=== PATIENT | female | born 1955 | race Caucasian/White ===

== ENCOUNTER 2020-12-14 13:07 | Emergency (ER) | payer MEDICARE, OTHER, SELFPAY ==
--- NOTE | ~2020-12-14 | CT_ITS ---
EXAMINATION: CT abdomen pelvis w con DATE: 12/14/2020 14:24 INDICATION: Left-sided abdominal pain TECHNIQUE: Computed tomography (CT) of the abdomen and pelvis was performed without intravenous contr ast. The dose-length product was 1342.38 mGy-cm. Automated exposure control and iterative reconstruct ion technique were employed. COMPARISON: None. FINDINGS: Lung bases are unremarkable. Heart size normal. No significant pleural or pericardial effus ion. No significant vascular abnormality. No lymphadenopathy. Fatty infiltration of the liver. There are gallstones. The spleen, pancreas, adrenal glands and kidne ys are unremarkable. Nonobstructive bowel gas pattern. There is acute diverticulitis of the distal de scending colon without evidence for perforation or abscess. No abnormal pelvic fluid collections. The re is a 3.8 cm left ovarian cyst. Mild lumbar spondylosis. IMPRESSION: 1. Acute uncomplicated diverticulitis distal descending colon. 2: Left ovarian cyst measuring 3.8 cm. 3: Cholelithiasis. Reviewed, dictated and finalized at location A. AIN FITTER
[2020-12-14 13:12] VITALS: BP 168/68; PULSE 82; RESP 18; TEMP 36.8; O2SAT 100
--- NOTE | 2020-12-14 13:19 | PC.NURSE ---
Patient up to bathroom at this time.
--- NOTE | 2020-12-14 13:23 | ED.ABDPAIN ---
HPI - Abdominal Pain General Chief Complaint: Abdominal Pain Stated Complaint: abdominal pain Time Seen by Provider: 12/14/20 13:15 Source: patient Mode of arrival: ambulatory Limitations: no limitations History of Present Illness HPI narrative: Patient is a 65-year-old female complaining of left-sided abdominal pain, 6 out of 10, sharp, nonradiating worse after eating and drinking, started approximately 4 days ago. Patient denies any chest pain, shortness of breath, nausea, vomiting, diarrhea, fever or chills. Related Data Home Medications Medication Instructions Recorded Confirmed B-complex with vitamin C 1 tablet PO DAILY 07/30/20 calcium carbonate 500 mg calcium 500 mg PO DAILY 07/30/20 (1,250 mg) tablet cholecalciferol (vitamin D3) 125 125 mcg PO DAILY 07/30/20 mcg (5,000 unit) capsule coenzyme P88-[id number] E 100 mg-100 cap PO 07/30/20 unit capsule diphenhydramine HCl 25 mg capsule 25 mg PO ONCE PRN cap 07/30/20 pediatric multivitamin 1 tablet PO DAILY 07/30/20 Allergies Allergy/AdvReac Type Severity Reaction Status Date / Time aspirin Allergy Unknown Unknown Verified 11/21/20 15:28 benazepril Allergy Unknown Unknown Verified 11/21/20 15:28 caffeine Allergy Unknown Unknown Verified 11/21/20 15:28 hydrocodone Allergy Unknown Itching Verified 11/21/20 15:28 metformin Allergy Unknown Unknown Verified 11/21/20 15:28 morphine Allergy Unknown Unknown Verified 11/21/20 15:28 Sulfa (Sulfonamide Allergy Unknown Unknown Verified 11/21/20 15:28 Antibiotics) sulfanilamide Allergy Unknown Unknown Verified 11/21/20 15:28 tramadol Allergy Unknown Unknown Verified 11/21/20 15:28 Review of Systems Review of Systems: All systems reviewed & are unremarkable except as noted in HPI and below Constitutional: Constitutional: Denies body ache(s), Denies chills, Denies excessive sweating, Denies fatigue, Denies fever(s), Denies headache(s), Denies lethargy, Denies malaise, Denies weakness and Denies weight loss Eyes: Eyes: Denies blurry vision, Denies change in vision and Denies loss of vision ENT: Denies dizziness, Denies ear discharge, Denies headache(s), Denies lip swelling, Denies epistaxis, Denies nasal congestion, Denies neck pain, Denies throat swelling and Denies tongue swelling Cardiovascular: Cardiovascular: Denies chest pain, Denies chest pain at rest, Denies chest pain with activity, Denies diaphoresis, Denies rapid heart rate, Denies edema, Denies irregular heart rhythm, Denies lightheadedness, Denies palpitations, Denies dyspnea and Denies dyspnea on exertion Respiratory: Respiratory: Denies chest congestion, Denies cough, Denies hemoptysis, Denies dyspnea and Denies dyspnea on exertion Gastrointestinal: Gastrointestinal: Denies melena, Denies hematochezia, Denies diarrhea, Denies nausea, Denies vomiting and Denies hematemesis Musculoskeletal: Musculoskeletal: Denies abnormal gait, Denies deformity, Denies joint swelling, Denies limited range of motion, Denies neck pain and Denies numbness Neurologic: Denies Abnormal speech present, Denies abnormal gait, Denies confusion, Denies dizziness, Denies headache(s), Denies focal weakness, Denies loss of vision, Denies numbness, Denies Other visual disturbances, Denies Sensory deficit (Neuro) and Denies weakness Psychiatric: Psychiatric: Denies confusion, Denies depression, Denies auditory hallucinations, Denies homicidal ideation and Denies suicidal ideation Endocrine: Endocrine: Denies cold intolerance, Denies excessive sweating, Denies fatigue, Denies heat intolerance and Denies palpitations Hematologic/Lymphatic: Hematologic/Lymphatic: Denies easy bleeding and Denies easy bruising Allergic/Immunologic: Allergic/Immunologic: Denies lip swelling, Denies throat swelling and Denies tongue swelling [facility] Past Medical History Medical History BMI 37.0-37.9, adult Breast cancer Carpal tunnel syndrome Depression El
[2020-12-14] MEDS: SODIUM CHLORIDE 0.9% IV 1,000 ML 999 ML IV CONT (13:34)
[2020-12-14 13:48] LABS: Basophils Absolute Auto 0.1 K/mm3 (0.0-0.1); Basophils Percent Auto 0.6 % (0.2-1.2); Eosinophils Absolute Auto 0.3 K/mm3 (0-0.3); Eosinophils Percent Auto 2.7 % (0-4.4); Hematocrit 37.9 % (37.0-47.0); Hemoglobin 12.7 g/dL (12.0-15.0); Immature Granulocyte Absolute 0.04 K/mm3 (0.00-0.031); Immature Granulocyte Percent A 0.3 % (0-0.5); Lymphocytes Percent Auto 21.8 % (18.3-44.2); Mean Corpuscular HGB Conc 33.5 g/dl (32-36); Mean Corpuscular Hemoglobin 32.7 pg (26-34); Mean Corpuscular Volume 97.7 fl (80-100); Mean Platelet Volume 9.7 fl (7.4-10.4); Monocytes Absolute Auto 0.9 K/mm3 (0.1-0.6); Monocytes Percent Auto 7.8 % (2.6-8.5); Neutrophils Percent Auto 66.8 % (45.5-73.1); Platelet Count Result 310 k/mm3 (150-375); Red Blood Count 3.88 M/mm3 (4.2-5.4); White Blood Count 11.9 K/mm3 (4.5-10.0)
[2020-12-14 13:53] LABS: Add Urine Microscopic? YES; Appearance Urine Cloudy (Clear); Bilirubin Urine Negative (Negative); Blood Urine Negative (Negative); Color Urine Yellow (Yellow); Glucose Urine UA Negative (Negative); Ketones Urine Negative (Negative); Leukocyte Esterase Ur Negative LEU/UL (Negative); Nitrate Urine Negative (Negative); Protein Urine Negative (Negative); RBC Urine 0-2 /hpf (0-2); Specific Grav Ur 1.009 (1.001-1.035); Squamous Epithelial Cell Urine Few /hpf (Few); Urobilinogen Urine Negative mg/dL (<2.0); WBC Urine 0-3 /hpf
[2020-12-14 14:08] LABS: Alanine Aminotransferase 9 U/L (4-35); Alkaline Phosphatase 64 U/L (38-126); Anion Gap 4 mmol/L (8-16); Aspartate Amino Transferase 26 U/L (14-36); Bilirubin,Total 0.5 mg/dL (0.2-1.3); Blood Urea Nitrogen 13 mg/dL (7-17); Calcium 8.7 mg/dL (8.4-10.2); Carbon Dioxide 30 mmol/L (22-30); Chloride 104 mmol/L (98-107); Estimated CRCL calculation 90 ml/min; Estimated Glomerular Filt Rate > 60; Glucose 172 mg/dL (65-105); Lipase 37 U/L (23-300); Potassium 4.6 mmol/L (3.4-5.0); Sodium 138 mmol/L (137-145)
[2020-12-14 14:09] LABS: Lactic Acid Reflex 1.1 mmol/L (0.7-2.1)
[2020-12-14 14:20] VITALS: BP 159/65; PULSE 72; RESP 19; TEMP 36.6; O2SAT 99
[2020-12-14 15:37] VITALS: BP 151/76; PULSE 74; RESP 19; O2SAT 98
[2020-12-14] MEDS: KETOROLAC 30 MG/ML VIAL (*BKC) IV PUSH (16:19)
[2020-12-14] MEDS: metroNIDAZOLE 500 MG/ISO 100ML 500 MG/100 ML BAG 100 MG IVPB (16:20)
[2020-12-14 16:41] VITALS: BP 149/92; PULSE 72; RESP 20; TEMP 36.4; O2SAT 97
[2020-12-14 17:26] VITALS: BP 141/79; PULSE 74; RESP 18; TEMP 36.6; O2SAT 99
== END 2020-12-14 17:29 | disposition home or self-care (01) ==
PROVIDERS: Emergency Medicine; Emergency Provider Emergency Medicine; PCP Family Medicine
DX: K57.32 Diverticulitis of large intestine without perforation or abscess without bleeding (principal); I10 Essential (primary) hypertension; M81.0 Age-related osteoporosis without current pathological fracture; Z85.3 Personal history of malignant neoplasm of breast; Z87.891 Personal history of nicotine dependence; K80.20 Calculus of gallbladder without cholecystitis without obstruction; N83.202 Unspecified ovarian cyst, left side
CPT/HCPCS: 36415; 74177; 80053; 81001; 83605; 83690; 85025; 96361; 96365; 96368; 96375; 99284; 99285; J0696; J1885; J7030; Q9967

== ENCOUNTER 2021-06-19 14:39 | Outpatient (CLI) | payer MEDICARE, OTHER, SELFPAY ==
--- NOTE | 2021-06-19 | ECG_ITS ---
Measurements Intervals [place] Rate: 68 P: 60 RI: 157 QRS: -27 QRSD: 85 T: 30 QT: 391 QTc: 417 Interpretive Statements SINUS RHYTHM NORMAL ECG Electronically Signed On 06-19-2021 15:51:20 CDT by Ilya Roman D.O.
== END 2021-06-19 14:40 | disposition home or self-care (01) ==
PROVIDERS: PCP Family Medicine
DX: C50.912 Malignant neoplasm of unspecified site of left female breast (principal)
CPT/HCPCS: 93005

== ENCOUNTER → 2021-07-10 02:54 | Outpatient (CLI) | payer MEDICARE, OTHER, SELFPAY ==
[2021-07-10 19:19] LABS: SARS-CoV-2 RNA PCR Negative
== END ==
PROVIDERS: PCP Family Medicine
DX: Z01.812 Encounter for preprocedural laboratory examination (principal); Z85.3 Personal history of malignant neoplasm of breast; Z20.822 Contact with and (suspected) exposure to COVID-19
CPT/HCPCS: C9803; U0003; U0005

== ENCOUNTER → 2021-07-31 01:45 | Outpatient (CLI) | payer MEDICARE, OTHER, SELFPAY ==
[2021-07-31 17:06] LABS: SARS-CoV-2 RNA PCR Negative
== END ==
PROVIDERS: PCP Family Medicine
DX: Z01.812 Encounter for preprocedural laboratory examination (principal); Z20.822 Contact with and (suspected) exposure to COVID-19
CPT/HCPCS: C9803; U0003; U0005

== ENCOUNTER 2022-06-02 12:17 | Emergency (ER) | payer MEDICARE, OTHER, SELFPAY ==
--- NOTE | ~2022-06-02 | XR_ITS ---
EXAMINATION: XR chest 2V DATE: 06/02/2022 12:43 INDICATION: Cough with shortness of breath. Tingling radiation treatment. TECHNIQUE: PA and lateral views of the chest were obtained. COMPARISON: Chest radiograph dated 08/30/2018 FINDINGS: New approximately 3-4 cm focal airspace opacity at the lateral left midlung zone. Smaller more subtle airspace opacities in the more caudal left mid to lower lung zones. No pleural effusion or pneumotho rax. Calcified right apical nodule consistent with old granulomatous disease. The cardiomediastinal s ilhouette is normal. Moderate thoracic spondylosis. Postoperative changes at the left breast. IMPRESSION: 1. New airspace opacities in the left mid and lower lung zones in the acute setting concerning for pn eumonia. Given the provided history differential would also include radiation pneumonitis/fibrosis or malignancy. Recommend either radiographic follow-up to resolution or chest CT for further evaluation . Reviewed, dictated and finalized at location A. IMPRESSION: 1. New airspace opacities in the left mid and lower lung zones in the acute set ting concerning for pneumonia. Given the provided history differential would al so include radiation pneumonitis/fibrosis or malignancy. Recommend either radio graphic follow-up to resolution or chest CT for further evaluation.
[2022-06-02 12:24] VITALS: BP 148/67; PULSE 83; RESP 19; TEMP 36.9; O2SAT 97
--- NOTE | 2022-06-02 12:57 | ED.URI ---
HPI - URI/Sore Throat General Chief Complaint: Upper Respiratory Infection Stated Complaint: Cough,Shortness of Breath Time Seen by Provider: 06/02/22 12:45 Source: patient, RN notes reviewed and old records reviewed Mode of arrival: ambulatory Limitations: no limitations History of Present Illness HPI Narrative: 66 year old female who presents to express care with complaints of cough, intermittent shortness of breath and some left lateral chest discomfort with cough and some movement. Patient states that cough has become worse since yesterday and she states was increasingly bad last night that she couldn't hardly sleep. Patient reports that she has taken some NyQuil cough medication but states that it didn't provide her much relief. Patient is afebrile no tachypnea noted but shortness of breath stated with exertion. MD elicited complaint: cough and other (Shortness of breath,) Pertinent past history: other (breast cancer and radiation therapy left breast) Onset (ago): week(s) (1) Related Data Home Medications Medication Instructions Recorded Confirmed B-complex with vitamin C (Super B 1 tablet PO DAILY 07/30/20 03/18/22 Complex-Vitamin C tablet) calcium carbonate 500 mg calcium 500 mg PO DAILY 07/30/20 03/18/22 (1,250 mg) tablet (Calcium 500) cholecalciferol (vitamin D3) 125 125 mcg PO DAILY 07/30/20 06/02/22 mcg (5,000 unit) capsule coenzyme [id number] E 100 mg-100 100 cap PO DAILY 07/30/20 06/02/22 unit capsule pediatric multivitamin 1 tablet PO DAILY 07/30/20 06/02/22 ([facility] chew[facility] tablet) amlodipine 5 mg tablet 5 mg PO DAILY 09/09/21 06/02/22 exemestane 25 mg tablet 25 mg PO DAILY 12/03/21 06/02/22 Allergies Allergy/AdvReac Type Severity Reaction Status Date / Time aspirin Allergy Unknown Unknown Verified 06/02/22 12:37 benazepril Allergy Unknown Unknown Verified 06/02/22 12:37 caffeine Allergy Unknown Unknown Verified 06/02/22 12:37 hydrocodone Allergy Unknown Itching Verified 06/02/22 12:37 metformin Allergy Unknown Unknown Verified 06/02/22 12:37 morphine Allergy Unknown Unknown Verified 06/02/22 12:37 Sulfa (Sulfonamide Allergy Unknown Unknown Verified 06/02/22 12:37 Antibiotics) sulfanilamide Allergy Unknown Unknown Verified 06/02/22 12:37 tramadol Allergy Unknown Unknown Verified 06/02/22 12:37 Review of Systems Review of Systems: CONSTITUTIONAL: Denies fever, chills, or sweats. EYES: Denies visual changes, redness, or discharge. ENT: Denies rhinorrhea, congestion, sore throat, or otalgia. CARDIOVASCULAR: left lateral chest discomfort with cough, movement and deep breathing, denies palpitations, or edema. RESPIRATORY: Positive non productive cough intermittent dyspnea. GASTROINTESTINAL: Denies abdominal pain, nausea, vomiting, or diarrhea. GENITOURINARY: Denies dysuria or hematuria. SKIN: Denies rash or itching. MUSCULOSKELETAL: Denies back pain, joint pain, or myalgia. NEUROLOGIC: Denies headache, numbness, or weakness. PSYCHIATRIC: Positive for anxiety or depression. All systems reviewed & are unremarkable except as noted in HPI and below PMFSH Past Medical History Medical History Adult BMI 36.0-36.9 kg/sq m BMI 37.0-37.9, adult Breast cancer Carpal tunnel syndrome Depression Elevated lipids History of vaginal delivery x 3 Hypertension Osteoporosis Trigger finger Surgical History Surgical History History of bilateral tubal ligation History of dilation and curettage History of mastectomy History of shoulder surgery Hx of bilateral breast reduction surgery Family History Family History Sibling Family history of premature coronary heart disease Hypertension COPD (chronic obstructive pulmonary disease) Mother Hypertension Family history of malignant neoplasm of cervix Family history of
== END 2022-06-02 13:36 | disposition home or self-care (01) ==
PROVIDERS: Emergency Provider Registered Nurse; PCP Family Medicine
DX: J18.9 Pneumonia, unspecified organism (principal); Z87.891 Personal history of nicotine dependence; I10 Essential (primary) hypertension; M81.0 Age-related osteoporosis without current pathological fracture; Z85.3 Personal history of malignant neoplasm of breast; F32.A Depression, unspecified
CPT/HCPCS: 71046; 99213; G0463

== ENCOUNTER → 2022-06-22 13:15 | Outpatient (CLI) | payer MEDICARE, OTHER, SELFPAY ==
--- NOTE | ~2022-06-22 | XR_ITS ---
XR chest 2V 06/22/2022 13:48 Indication: Pneumonia. Procedure: 2 view chest Comparison: Comparison to multiple prior studies sequentially, with oldest reviewed study dated 03/21. Findings: There is patchy left-sided airspace disease, compatible with pneumonia. Heart size normal. No pleural effusion or pneumothorax. Impression: 1: Patchy left-sided airspace disease, compatible with pneumonia. Reviewed, dictated and finalized at location B. Impression: 1: Patchy left-sided airspace disease, compatible with pneumonia.
== END ==
PROVIDERS: PCP Family Medicine; Visit Provider Physician Assistant Medical
DX: J18.9 Pneumonia, unspecified organism (principal); R91.8 Other nonspecific abnormal finding of lung field
CPT/HCPCS: 71046

== ENCOUNTER 2022-06-29 14:27 | Outpatient (CLI) | payer MEDICARE, OTHER, SELFPAY ==
--- NOTE | ~2022-06-29 | CT_ITS ---
EXAMINATION:CT diagnostic chest w con DATE: 06/29/2022 15:11 INDICATION: Left chest pain. Cough. TECHNIQUE: Computed tomography (CT) of the chest was performed with 75 mL Omnipaque 350 intravenous c ontrast. Automated exposure control and iterative reconstruction technique were employed. The dose-le ngth product (DLP) was 302.56 mGy-cm. COMPARISON: Chest 2 views 06/22/2022, 06/02/2022, chest single view 08/30/18 FINDINGS: There is mild scarring at right lung apex. There is mild atelectasis in the lungs. In the l eft upper lobe, there are patchy groundglass and airspace opacities with air bronchograms, consistent with pneumonia. No pleural effusion. There are surgical changes in left breast. The heart size is no rmal. No pericardial effusion. In the left thyroid lobe, there is a 5 mm nodule, likely not clinicall y significant. There are no pathologically enlarged lymph nodes. There is moderate thoracic spondylo sis. There is a chronic compression fracture of T3. IMPRESSION: 1. Left upper lobe pneumonia. Reviewed, dictated and finalized at location A.
[2022-06-29 15:03] LABS: Estimated Glomerular Filt Rate > 60
== END 2022-06-29 14:28 | disposition home or self-care (01) ==
PROVIDERS: PCP Family Medicine; Visit Provider Physician Assistant Medical
DX: J18.9 Pneumonia, unspecified organism (principal); C50.112 Malignant neoplasm of central portion of left female breast; R91.8 Other nonspecific abnormal finding of lung field
CPT/HCPCS: 71260; Q9967

== ENCOUNTER 2022-08-21 13:31 | Outpatient (CLI) | payer MEDICARE, OTHER, SELFPAY ==
--- NOTE | ~2022-08-21 | US_ITS ---
EXAMINATION: US pelvic complete w TV DATE: 08/21/2022 15:34 INDICATION: Left ovarian cyst follow-up. TECHNIQUE: Multiple transabdominal and endovaginal sonographic images of the pelvis were obtained. COMPARISON: CT abdomen and pelvis 12/14/2020. FINDINGS: Uterus: 8.4 x 4.3 x 3.0 cm. Endometrial complex measures 2.7 mm. Right Ovary: Not visualized. Left Ovary: 5.6 x 3.8 x 4.2 cm. Vascular flow is present. 5.1 x 3.2 x 3.8 cm circumscribed anechoic a nd avascular ovarian cyst (previously measured 5.1 cm by my measurements). There is no free fluid in the pelvis. IMPRESSION: Stable 5.1 cm left ovarian cyst, likely a benign simple cyst. Recommend follow-up pelvic ultrasound i n 2 years to document stability. Right ovary not visualized. Reviewed, dictated and finalized at location K. IMPRESSION: Stable 5.1 cm left ovarian cyst, likely a benign simple cyst. Recommend follow- up pelvic ultrasound in 2 years to document stability. Right ovary not visualiz ed.
== END 2022-08-21 13:32 | disposition home or self-care (01) ==
PROVIDERS: PCP Family Medicine; Visit Provider Student in an Organized Health Care Education/Training Program
DX: N83.202 Unspecified ovarian cyst, left side (principal)
CPT/HCPCS: 76830; 76856

== ENCOUNTER 2022-12-07 12:01 | Emergency (ER) | payer MEDICARE, OTHER, SELFPAY ==
--- NOTE | ~2022-12-07 | XR_ITS ---
EXAMINATION: XR wrist RT min 3V DATE: 12/07/2022 12:50 INDICATION: Distal right radius pain. Fall. TECHNIQUE: 4 views of right wrist were obtained. COMPARISON: None. FINDINGS: Bone alignment is normal. No fracture. There is mild osteoarthritis of triscaphe joint and first carpometacarpal joint. IMPRESSION: 1. Mild polyarticular osteoarthritis. Reviewed, dictated and finalized at location A. ENE WASHER
--- NOTE | ~2022-12-07 | XR_ITS ---
EXAMINATION: XR shoulder RT min 2V INDICATION: Right shoulder pain TECHNIQUE: Four views of the right shoulder are submitted. COMPARISON: None FINDINGS: Normal alignment. No fracture. There is mild osteoarthritis of the acromioclavicular and gl enohumeral joints. Soft tissues are unremarkable. IMPRESSION: 1. Mild osteoarthritis without acute osseous abnormality. Reviewed, dictated and finalized at location B. [employer]
[2022-12-07 12:23] VITALS: BP 135/56; PULSE 81; RESP 18; TEMP 36.6; O2SAT 98
--- NOTE | 2022-12-07 12:28 | ED.SKABFB ---
HPI - Skin/Abscess/Foreign Bdy General Chief complaint: Skin/Abscess/Foreign Body Stated complaint: rash Time Seen by Provider: 12/07/22 12:03 Source: patient Mode of arrival: ambulatory Limitations: no limitations History of Present Illness HPI narrative: 67-year-old female presents to [facility] with multiple complaints. Patient reports that she tripped over her suitcase in her home yesterday and fell landing on her right side. Patient reports that she has had pain to her right shoulder and right wrist since following the fall. Patient denies hitting her head or loss of consciousness. Patient also reports erythematous itchy rash to her midsternal region. Patient reports that the rash 1st started 3 weeks ago. Patient reports that she has a history of breast cancer, followed up with her surgeon who completed a biopsy of the area on November 10 2022 which was negative. Patient reports that she has been applying oraz-aiq-[id number] Neosporin and Aquaphor with little relief. Patient reports that she also has been cleaning the area with peroxide. Patient reports that she started taking leftover antibiotics that she had at home from prior diagnosis of pneumonia with no improvement of rash. Patient denies fever, body aches, chills, nausea, vomiting or diarrhea. Onset (ago): week(s) (3) Quality: pruritic Pain Consistency: constant Associated symptoms: denies other symptoms Related Data Home Medications Medication Instructions Recorded Confirmed B-complex with vitamin C (Super B 1 tablet PO DAILY 07/30/20 12/07/22 Complex-Vitamin C tablet) calcium carbonate 500 mg calcium 500 mg PO DAILY 07/30/20 12/07/22 (1,250 mg) tablet (Calcium 500) cholecalciferol (vitamin D3) 125 125 mcg PO DAILY 07/30/20 12/07/22 mcg (5,000 unit) capsule coenzyme R24-[id number] E 100 mg-100 100 cap PO DAILY 07/30/20 12/07/22 unit capsule pediatric multivitamin 1 tablet PO DAILY 07/30/20 12/07/22 ([facility] Multivitamin chewable tablet) Allergies Allergy/AdvReac Type Severity Reaction Status Date / Time aspirin Allergy Unknown Unknown Verified 09/28/22 12:43 benazepril Allergy Unknown Unknown Verified 09/28/22 12:43 caffeine Allergy Unknown Unknown Verified 09/28/22 12:43 hydrocodone Allergy Unknown Itching Verified 09/28/22 12:43 morphine Allergy Unknown Unknown Verified 09/28/22 12:43 Sulfa (Sulfonamide Allergy Unknown Unknown Verified 09/28/22 12:43 Antibiotics) sulfanilamide Allergy Unknown Unknown Verified 09/28/22 12:43 tramadol Allergy Unknown Unknown Verified 09/28/22 12:43 jardiance AdvReac Intermediate weakness Uncoded 09/28/22 12:43 Review of Systems Constitutional: Constitutional: Denies chills, Denies fatigue, Denies fever(s) and Denies weakness ENT: Denies dizziness Respiratory: Respiratory: Denies cough, Denies dyspnea and Denies wheezing Gastrointestinal: Gastrointestinal: Denies diarrhea, Denies nausea and Denies vomiting Musculoskeletal: Musculoskeletal: Reports arthralgias Comments: Pain to right shoulder and right wrist, pain is worse with range of motion Integumentary/Breasts: Skin/Breast: Reports pruritus and Reports rash PMFSH Past Medical History Medical History Adult BMI 36.0-36.9 kg/sq m BMI 37.0-37.9, adult BMI over 35 Breast cancer Carpal tunnel syndrome Depression Elevated lipids History of radiation therapy History of vaginal delivery x 3 Hypertension Osteoporosis Trigger finger Surgical History Surgical History History of bilateral tubal ligation History of dilation and curettage History of mastectomy History of shoulder surgery Hx of bilateral breast reduction surgery Family History Family History Sibling Family history of premature coronary heart disease Hypertension COPD (chronic obstructive pulmonary disease)
== END 2022-12-07 13:16 | disposition home or self-care (01) ==
PROVIDERS: Emergency Provider Nurse Practitioner Family; PCP Family Medicine
DX: R21 Rash and other nonspecific skin eruption (principal); M25.511 Pain in right shoulder; M25.531 Pain in right wrist; W18.09XA Striking against other object with subsequent fall, initial encounter; Z87.891 Personal history of nicotine dependence; I10 Essential (primary) hypertension; M81.0 Age-related osteoporosis without current pathological fracture; Z85.3 Personal history of malignant neoplasm of breast; F32.A Depression, unspecified
CPT/HCPCS: 73030; 73110; 99214; G0463

== ENCOUNTER 2023-08-19 11:18 | Outpatient (CLI) | payer MEDICARE, OTHER, SELFPAY ==
--- NOTE | ~2023-08-19 | XR_ITS ---
Left wrist Technique: PA, oblique, lateral, and ulnar deviation views were obtained. Clinical History: Pain Findings: No acute fracture or dislocation is seen. Osseous alignment is anatomic. There is mild dege nerative change of the STT articulations and first CMC joint. Soft tissues are unremarkable. Impression: Mild degenerative change of the STT articulations and first CMC joint. Reviewed, dictated and finalized at location M. Impression: Mild degenerative change of the STT articulations and first CMC joint.
== END 2023-08-19 11:19 | disposition home or self-care (01) ==
PROVIDERS: PCP Family Medicine; Visit Provider Physician Assistant Medical
DX: M25.532 Pain in left wrist (principal)
CPT/HCPCS: 73110

== ENCOUNTER 2023-12-24 06:40 | Day surgery (SDC) | payer MEDICARE, OTHER, SELFPAY ==
[2023-11-26 14:57] VITALS: BMI 34.0
--- NOTE | 2023-12-22 14:45 | SUR.PREOP ---
Patient called regarding upcoming procedure. Reviewed preop instructions, appointment times, and procedure prep.
--- NOTE | 2023-12-23 13:11 | PM.HPGS ---
History of Present Illness History of Present Illness Consent: Risks, benefits, and alternatives have been discussed and questions answered. Patient agrees to proceed with procedure. Chief complaint: neoplasm screening Narrative: Joseline Sullivan is a 68 year old female referred for colon cancer screening. It has been 10 years since her last colonoscopy. Review of Systems Review of Systems: All systems reviewed & are unremarkable except as noted in HPI and below PMFSH Past Medical History Medical History BMI 33.0-33.9,adult BMI 34.0-34.9,adult Breast cancer Carpal tunnel syndrome Depression Elevated lipids History of radiation therapy History of vaginal delivery x 3 Hypertension Osteoporosis Trigger finger Surgical History Surgical History History of bilateral tubal ligation History of dilation and curettage History of mastectomy History of shoulder surgery Hx of bilateral breast reduction surgery Family History Family History Sibling Family history of premature coronary heart disease Hypertension COPD (chronic obstructive pulmonary disease) Mother Hypertension Family history of malignant neoplasm of cervix Family history of malignant neoplasm of urinary bladder, Onset Age: 76 Patient's mother is Family history of hypercholesterolemia Grandparent Family history of malignant neoplasm of cervix Cerebrovascular accident Father Heart disease Other Asthma Carcinoma of colon Family history of heart disease in male family member before age 55 Family history of malignant neoplasm of uterus Social History Social History Smoking packs per day: 1 Smoking cigarettes per day: 20.0 Years smoked: 30 Smoking pack-years: 30.00 Smoking status: Former smoker Tobacco type: cigarettes Second hand tobacco smoke exposure: Yes Smoking end date: 11/08/98 Alcohol intake: never Substance use: never Substance use type: does not use Do You Feel Safe in your Home?: No Lack of Transportation: No Lack of Food: Never True Current Housing: I Have Housing Concerned About Future Housing: No Difficulty Paying Gas/Electric Bills: No Difficulty Paying for Meds: No Currently Unemployed: No Education: Bachelor's Degree Difficulty w/ Childcare or Family Care: No Living arrangements: other Additional living arrangements comments: with sp Occupation/Education: 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 Gender identity (if verbalized by the patient): Female Spiritual care concerns: No Meds Home Medications and Allergies Home Medications Medication Instructions Recorded Confirmed Type B-complex with vitamin C (Super B 1 tablet PO DAILY 07/30/20 11/26/23 History Complex-Vitamin C tablet) calcium carbonate 500 mg calcium 500 mg PO DAILY 07/30/20 11/26/23 History (1,250 mg) tablet (Calcium 500) cholecalciferol (vitamin D3) 125 125 mcg PO DAILY 07/30/20 11/26/23 History mcg (5,000 unit) capsule coenzyme [id number]-[id number] E 100 mg-100 100 cap PO DAILY 07/30/20 11/26/23 History unit capsule anastrozole 1 mg tablet 1 mg PO DAILY 01/12/23 11/26/23 History biotin 10,000 mcg capsule 10,000 mcg PO DAILY 04/12/23 11/26/23 History amlodipine 5 mg tablet 5 mg PO DAILY #90 tabs 11/09/23 11/26/23 Rx carbidopa 25 mg-levodopa 100 mg See Rx Instructions .Route 11/09/23 11/26/23 Rx tablet .COMPLEX #360 tabs carvedilol 12.5 mg tablet See Rx Instructions .Route 11/09/23 11/26/23 Rx .COMPLEX #180 tabs meloxicam 7.5 mg tablet 7.5 mg PO DAILY inflammation #90 11/09/23 11/26/23 Rx tabs metformin 500 mg tablet 1,000 mg PO BID #360 tabs 11/09/23 11/26/23 Rx rosuvastatin 40 mg tablet (Crestor) 40 mg PO DAILY #90 tabs
[2023-12-24] MEDS: LACTATED RINGERS 1,000 ML 150 ML IV CONT (06:39)
[2023-12-24 06:40] LABS: Glucose Point of Care 119 mg/dl (65-105)
--- NOTE | 2023-12-24 07:25 | WPDANESEPPF ---
Anes - Initial Pre Proc Eval Procedure: Operation Date: 12/24/23 07:30 Proposed Procedures p Screening Colonoscopy - Guru Ramos MD Date/Time: 12/24/23 07:25 Surgeon: Guru Ramos MD Pre Op Diagnosis: neoplasm screening Patient Data Age: 68 Gender: F Height: 1.75 m Weight: 104.5 kg Last Vital Signs O2 Del Method Room Air 12/24/23 06:19 Allergies Allergy/AdvReac Type Severity Reaction Status Date / Time aspirin Allergy Unknown Unknown Verified 12/24/23 06:18 Sulfa (Sulfonamide Allergy Unknown Unknown Verified 12/24/23 06:18 Antibiotics) sulfanilamide Allergy Unknown Unknown Verified 12/24/23 06:18 tramadol Allergy Unknown Unknown Verified 12/24/23 06:18 caffeine AdvReac Unknown Unknown Verified 12/24/23 06:18 RX pain meds Allergy Itching Uncoded 12/24/23 06:18 Home Medications Medication Instructions Recorded Confirmed Type B-complex with vitamin C (Super B 1 tablet PO DAILY 07/30/20 11/26/23 History Complex-Vitamin C tablet) calcium carbonate 500 mg calcium 500 mg PO DAILY 07/30/20 11/26/23 History (1,250 mg) tablet (Calcium 500) cholecalciferol (vitamin D3) 125 125 mcg PO DAILY 07/30/20 11/26/23 History mcg (5,000 unit) capsule coenzyme [id number] E 100 mg-100 100 cap PO DAILY 07/30/20 11/26/23 History unit capsule anastrozole 1 mg tablet 1 mg PO DAILY 01/12/23 11/26/23 History biotin 10,000 mcg capsule 10,000 mcg PO DAILY 04/12/23 11/26/23 History amlodipine 5 mg tablet 5 mg PO DAILY #90 tabs 11/09/23 11/26/23 Rx carbidopa 25 mg-levodopa 100 mg See Rx Instructions .Route 11/09/23 11/26/23 Rx tablet .COMPLEX #360 tabs carvedilol 12.5 mg tablet See Rx Instructions .Route 11/09/23 11/26/23 Rx .COMPLEX #180 tabs meloxicam 7.5 mg tablet 7.5 mg PO DAILY inflammation #90 11/09/23 11/26/23 Rx tabs metformin 500 mg tablet 1,000 mg PO BID #360 tabs 11/09/23 11/26/23 Rx rosuvastatin 40 mg tablet (Crestor) 40 mg PO DAILY #90 tabs 11/09/23 11/26/23 Rx sertraline 50 mg tablet See Rx Instructions .Route 11/09/23 11/26/23 Rx .COMPLEX #135 tabs tirzepatide 7.5 mg/0.5 mL 7.5 mg (0.5 mL) subcut WEEKLY #2 mL 11/09/23 11/26/23 Rx subcutaneous pen injector (Mounjaro) valacyclovir 500 mg tablet See Rx Instructions .Route 11/09/23 11/26/23 Rx .COMPLEX #90 tabs olmesartan 20 mg tablet 10 mg PO DAILY #90 tabs 11/13/23 11/26/23 Rx arginine 7 gram-glutam 7 1 packet PO BID 11/26/23 11/26/23 History gram-CaHMB 1.5 wuxx-kereo-ff-min oral pwd pkt (Santo (with collagen)) trazodone 50 mg tablet 50 mg PO .qhs PRN Insomnia 11/26/23 11/26/23 History Laboratory Tests 12/24/23 06:37 POC Capillary Glucose 119 H mg/dl (65-105) Patient hx anesthesia problems: none Family hx anesthesia problems: none Results Review: All pre-operative results and documents have been reviewed as part of the pre-operative evaluation. [facility] Past Medical History Medical History BMI 33.0-33.9,adult BMI 34.0-34.9,adult Breast cancer Carpal tunnel syndrome Depression Elevated lipids History of radiation therapy History of vaginal delivery x 3 Hypertension Osteoporosis Trigger finger Surgical History Surgical History History of bilateral tubal ligation History of dilation and curettage History of mastectomy History of shoulder surgery Hx of bilateral breast reduction surgery Family History Family History Sibling Family history of premature coronary heart disease Hypertension COPD (chronic obstructive pulmonary disease) Mother Hypertension Family history of malignant neoplasm of cervix Family history of malignant neoplasm of urinary bladder, Onset Age: 76 Patient's mother is Family history of hypercholesterolemia Grandparent Family history of malignant neoplasm of cervix Cer
[2023-12-24 07:48] VITALS: BP 119/46; PULSE 79; RESP 24; O2SAT 99
--- NOTE | 2023-12-24 07:49 | SUR.OPER ---
DR GROVES AWARE ONLY 1 SIGMOID COLON POLYP RETRIEVED. Nadja JAUREGUI, RN & Guerline DELA CRUZ RN
[2023-12-24 07:58] VITALS: BP 133/48; PULSE 72; RESP 22; O2SAT 100
[2023-12-24 08:08] VITALS: BP 137/56; PULSE 72; RESP 20; O2SAT 100
== END 2023-12-24 08:18 | disposition home or self-care (01) ==
PROVIDERS: PCP Family Medicine; Visit Provider Internal Medicine Gastroenterology
PROC: 0DJD8ZZ Inspection of Lower Intestinal Tract, Via Natural or Artificial Opening Endoscopic (ICD-10-PCS; CPT 45378; principal; 2023-12-24 07:30)
DX: Z12.11 Encounter for screening for malignant neoplasm of colon (principal); K63.5 Polyp of colon; K57.30 Diverticulosis of large intestine without perforation or abscess without bleeding; K64.8 Other hemorrhoids; I10 Essential (primary) hypertension; M81.0 Age-related osteoporosis without current pathological fracture; E78.5 Hyperlipidemia, unspecified; F32.A Depression, unspecified; Z87.891 Personal history of nicotine dependence; E66.9 Obesity, unspecified; Z68.34 Body mass index [BMI] 34.0-34.9, adult; Z79.84 Long term (current) use of oral hypoglycemic drugs; Z79.85 Long-term (current) use of injectable non-insulin antidiabetic drugs; Z79.811 Long term (current) use of aromatase inhibitors; Z85.3 Personal history of malignant neoplasm of breast
CPT/HCPCS: 45380; 45385; 82948; 88305; J2704; J7120

== ENCOUNTER 2024-03-07 08:43 | Outpatient (CLI) | payer MEDICARE, OTHER, SELFPAY ==
--- NOTE | 2024-03-07 10:45 | NEURO_ITS ---
Impression: # Complains of restless legs of long duration. History of diabetes as well. # Posterior tibial nerve polyphasic responses proximally. # Needle/EMG exam mildly neurogenic in bilateral Gastroc and EDB. # Clinical correlation recommended. Nerve Conduction Studies Anti Sensory Summary Table Stim Site NR Peak (ms) P-T Amp (?V) Site1 Site2 Delta-P (ms) Dist (cm) Jimmy (m/s) Left Sup Fibular Anti Sensory (Ant Lat Mall) 14 cm 3.4 5.6 14 cm Ant Lat Mall 3.4 16.0 47 Right Sup Fibular Anti Sensory (Ant Lat Mall) 14 cm 3.7 7.5 14 cm Ant Lat Mall 3.7 16.0 43 Left Sural Anti Sensory (Lat Mall) Calf 3.9 21.3 Calf Lat Mall 3.9 16.0 41 Right Sural Anti Sensory (Lat Mall) Calf 4.0 4.6 Calf Lat Mall 4.0 16.0 40 Motor Summary Table Stim Site NR Onset (ms) O-P Amp (mV) Site1 Site2 Delta-0 (ms) Dist (cm) Jimmy (m/s) Left Peroneal Motor (Vastus Med) Ankle 4.3 3.5 Popit Ankle 9.5 42.0 44 Popit 13.8 2.7 Right Peroneal Motor (Vastus Med) Ankle 4.8 2.3 Popit Ankle 9.4 41.0 44 Popit 14.2 1.4 Left Tibial Motor (Abd James Brev) Ankle 4.5 6.4 Knee Ankle 10.5 42.0 40 Knee 15.0 3.5 Right Tibial Motor (Abd James Brev) Ankle 4.8 2.8 Knee Ankle 10.6 42.0 40 Knee 15.4 2.0 F Wave Studies NR F-Lat (ms) L-R F-Lat (ms) Left Peroneal (Mrkrs) (EDB) 57.12 0.34 Right Peroneal (Mrkrs) (EDB) 57.46 0.34 Left Tibial (Mrkrs) (Abd Hallucis) 58.29 0.12 Right Tibial (Mrkrs) (Abd Hallucis) 58.17 0.12 EMG Side Muscle Nerve Root Ins Act Fibs Amp Dur Recrt Comment Right AntTibialis Dp Br Fibular L4-5 Nml Nml Nml Nml Nml Right Gastroc Tibial S1-2 Nml Nml Nml >12ms + Right Fibularis Long Sup Br Fibular L5-S1 Nml Nml Nml Nml Nml Right Flex Dig Long Tibial L5-S2 Nml Nml Nml Nml Nml Right Ext Dig Brev Dp Br Fibular L5, S1 Nml Nml Nml >12ms + Left AntTibialis Dp Br Fibular L4-5 Nml Nml Nml Nml Nml Left Gastroc Tibial S1-2 Nml Nml Nml >12ms + Left Fibularis Long Sup Br Fibular L5-S1 Nml Nml Nml Nml Nml Left Flex Dig Long Tibial L5-S2 Nml Nml Nml Nml Nml Left Ext Dig Brev Dp Br Fibular L5, S1 Nml Nml Nml >12ms + MTDD
== END 2024-03-07 08:44 | disposition home or self-care (01) ==
LOC: ANHNEURO 08:45
PROVIDERS: PCP Family Medicine; Visit Provider Physician Assistant Medical
DX: G25.81 Restless legs syndrome (principal); E11.9 Type 2 diabetes mellitus without complications; R94.131 Abnormal electromyogram [EMG]
CPT/HCPCS: 95886; 95910

== ENCOUNTER 2024-07-31 09:37 | Outpatient (CLI) | payer MEDICARE, OTHER, SELFPAY ==
--- NOTE | 2024-07-31 09:49 | EST_ITS ---
Patient Info Name: Joseline Sullivan Age: 68 years : 1955 Gender: Female Ht: 69 in Wt: 220 lbs BSA: 2.24 m2 HR: 69 bpm BP: 159 / 72 mmHg Exam Date: 07/31/2024 10:22 AM Exam Location: [facility] Patient Status: Outpatient Admit Date: 07/31/2024 Staff Ordering Physician: Ilya Roman DO Attending Provider: Ilya Roman DO Exercise Technologist: Brisa Sr RDCS Exercise Physician: Ilya Roman DO Exam Type: CA stress test treadmill Study Info A treadmill exercise stress test was performed. Summary 1. 1. Negative Star exercise stress test for ischemic ST changes by ECG criteria. 2. 2. Good functional capacity, achieving 7 METs of workload. 3. 3. Baseline hypertension with hypertensive response to exercise. 4. 4. Appropriate HR response to exercise. 5. 5. Appropriate HR recovery at 1 minute post exercise. 6. 6. No imaging with stress testing. 7. 7. Patient informed of the above results. Protocol: Star Stress ECG Details Stage: REST Duration (min): 7 min : 41 sec Speed (mph): 0.0 Grade (%): 0 HR (bpm): 69 SBP (mmHg): 159 DBP (mmHg): 72 METS: --- Stage: REST Duration (min): 21 min : 32 sec Speed (mph): 0.0 Grade (%): 0 HR (bpm): 71 SBP (mmHg): 159 DBP (mmHg): 72 METS: --- Stage: STAGE 1 Duration (min): 1 min : 0 sec Speed (mph): 1.7 Grade (%): 10 HR (bpm): 95 SBP (mmHg): 159 DBP (mmHg): 72 METS: --- Stage: STAGE 1 Duration (min): 2 min : 0 sec Speed (mph): 1.7 Grade (%): 10 HR (bpm): 105 SBP (mmHg): 159 DBP (mmHg): 72 METS: --- Stage: STAGE 1 Duration (min): 3 min : 0 sec Speed (mph): 1.7 Grade (%): 10 HR (bpm): 109 SBP (mmHg): 223 DBP (mmHg): 67 METS: --- Stage: STAGE 2 Duration (min): 1 min : 0 sec Speed (mph): 2.5 Grade (%): 12 HR (bpm): 119 SBP (mmHg): 223 DBP (mmHg): 67 METS: --- Stage: STAGE 2 Duration (min): 2 min : 0 sec Speed (mph): 2.5 Grade (%): 12 HR (bpm): 125 SBP (mmHg): 261 DBP (mmHg): 47 METS: --- Stage: STAGE 2 Duration (min): 2 min : 0 sec Speed (mph): 2.5 Grade (%): 12 HR (bpm): 125 SBP (mmHg): 261 DBP (mmHg): 47 METS: --- Stage: RECOVERY Duration (min): 0 min : 59 sec Speed (mph): 0.0 Grade (%): 0 HR (bpm): 114 SBP (mmHg): 261 DBP (mmHg): 47 METS: --- Stage: RECOVERY Duration (min): 1 min : 59 sec Speed (mph): 0.0 Grade (%): 0 HR (bpm): 98 SBP (mmHg): 261 DBP (mmHg): 47 METS: --- Stage: RECOVERY Duration (min): 2 min : 59 sec Speed (mph): 0.0 Grade (%): 0 HR (bpm): 88 SBP (mmHg): 261 DBP (mmHg): 47 METS: --- Stage: RECOVERY Duration (min): 3 min : 32 sec Speed (mph): 0.0 Grade (%): 0 HR (bpm): 83 SBP (mmHg): 243 DBP (mmHg): 69 METS: --- Rest HR: 71 bpm Peak HR: 129 bpm Rest Sys BP: 159 mmHg Peak Sys BP: 261 mmHg Max Pred HR: 150 bpm % Max Pred HR: 86 % Target HR: 128 bpm Max RPP: 33,669 bpm*mmHg
== END 2024-07-31 09:38 | disposition home or self-care (01) ==
LOC: ANHCARD 09:38
PROVIDERS: PCP Family Medicine; Visit Provider Internal Medicine Cardiovascular Disease
DX: R06.09 Other forms of dyspnea (principal); I10 Essential (primary) hypertension
CPT/HCPCS: 93017

== ENCOUNTER 2025-03-24 17:15 | Emergency (ER) | payer MEDICARE, OTHER, SELFPAY ==
--- NOTE | ~2025-03-24 | XR_ITS ---
XR abdomen/kub 1V Ordering provider: SAMANTHA Lisa History: . left flank pain . Comparison: None. FINDINGS: BOWEL: Nonobstructive bowel gas pattern. ORGANOMEGALY: None. SIGNIFICANT PATHOLOGIC CALCIFICATIONS: Calcifications in the left kidney area. Calcification in the r ight side inferior to the L4 right transverse process. Postoperative changes seen in the area. Possibility of a stone in the left lower ureter cannot be excluded. OTHER: No free air is seen under the diaphragm. IMPRESSION: NO ACUTE ABDOMINAL FINDINGS. Faint calcifications in the left renal area which may be stones. Possibility of a stone in the left lower ureter cannot be excluded. Noncontrast CT is better for eval uation. Reviewed, dictated and finalized at location A. IMPRESSION: NO ACUTE ABDOMINAL FINDINGS. Faint calcifications in the left renal area which may be stones. Possibility of a stone in the left lower ureter cannot be excluded. Noncontrast CT is better for evaluation.
--- OUTSIDE RECORDS SUMMARY | 2025-03-24 17:19 | XMS_ITS ---
Author Organization [facility] Address [address] [place] [address] Phone Care Team Providers Care Dramatic Coach Name Role Phone Carmine George MD Primary Care Provider Active Problems Patient Care Coordination No te Formatting of this note migh t be different from the original. Primary Care: Carmine George MD Referring Provider: Carmine George MD [address] [place] [address] Other: Dr Delaney Aggarwal MD Problem Noted Date Diagnosed Date Personal history of radiation therapy 06/12/2024 S/P left mastectomy 06/12/2024 Open wound of left breast with complication 03/2024 Ulcer of chest wall with fat layer exposed 04/01 Late effect of radiation 04/01/2023 Recurrent breast cancer, left 07/15/2021 Edema 05/25/2013 Personal history of malignant neoplasm of breast 03/06/2013 Acquired absence of breast and nipple 03/06/2013 Overview (03/06/2013): Left side HTN (hypertension), benign 02/03/2013 Elevated cholesterol 02/03/2013 Nonspecific abnormal electrocardiogram (ECG) (EK G) 02/03/2013 Asthma Arthritis Kidney stones Diabetes mellitus Breast Cancer Overview (01/31/2015): 01/13/13 Stage 2 ( T2 N0 Mx) IDC LEFT breast ER 95% ID 95% HER2/allyson - Ki67 14% S/p mastectomy and ALND 2.2cm 1.1cm 0.4cm Multifocal 0:2LNs plabn TCx 4 but she wants Oncotype NO RADIATION ONCOTYPE 8% (Recurrence Score 13) 04/08/13 FEMARA --ARIMIDEX Assessment & Plan (09/20/2013 11:46 AM 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 Past Treatment and Therapy Plans No past plan information found. Lifetime Dose Tracking * Chemical Lifetime Dose Automatic Entry Manual Entr y Effective Dose 23.5 mSv 23.5 mSv 0 mSv Total DLP 1,798 DLP 1,798 DLP 0 DLP CTDIvol Max 22.2 mGy 22.2 mGy 0 mGy CTDIvol Min 16.8 mGy 16.8 mGy 0 mGy Resolved Problems Problem Noted Date Diagnosed Date Resolved Date Cellulitis 03/10/2013 06/24/2013
--- OUTSIDE RECORDS SUMMARY | 2025-03-24 17:19 | XMS_ITS | Continuity of Care Document ---
Author Organization formerly [facility] Address [id number] [place] [address] [place] [address] Phone Care Team Providers Care Sound Recordist Name Role Phone Francis Chavez DO Unavailable Unavailable Advance Directives Directive Yes / No Effective Date File Name No Information Encounters Encounter Description Practice Location Reason(s) For Visit Diagnoses Date Provider Providers Copied on Encounter [facility], [address], [place], [place], [id number], [place] tel:[phone] [facility] No Information Kathy Lara. [address] [place], [address], [place]. tel: [phone] Family History Family Member Type Diagnosis Age At Onset No Information Payers Payer name Insurance type Covered constitution party ID Authoriza tion(s) No Information Social History Type Description Quantity Date Captured Comments Sex Female Smoking Status No Information Chief Complaint And Reason For Visit No Information Reason For Referral Reason For Referral No Information History Of Present Illness Encounter Date Complaint History Of Prese nt Illness No Information Functional Status Date Functional Assessmen t No Information Instructions Date Instruction Additional Infor mation No Information Assessments Type Assessment Date No Information Patient Care Teams Name Effective Dates (start - stop) Status Members No Information
--- OUTSIDE RECORDS SUMMARY | 2025-03-24 17:19 | XMS_ITS | Clinical Summary ---
Author Organization [facility] Address [address] [place] [id number] Care Team Providers Care Nonfarm Animal Caretaker Name Role Phone Carmine George MD Primary Care Provider [phone] Allergies Active Allergy Reactions Criticality Noted Date Comments Sulfa Antibiotics Shortness of Breath High 4 Sob and wheezing Medications clobetasol (TEMOVATE) 0.05 % creamIndication s:Pruritic rash Apply topically 2 (two) times daily. 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 Gender Identity Not on file Sexual Orientation Not on file Plan of Treatment Health Maintenance Due Date Last Done Comments Colorectal Cancer Screening Colonoscopy (10 Years) 1955 Hepatitis C 1971 DTaP, Tdap and Td Vaccines (1 - Tdap) 1972 Zoster Vaccines (1 of 2) 2003 Annual Medicare Wellness Visit 2018 Pneumococcal Vaccine: 50+ Years (2 of 2 - PCV) 07/30/2021 07/30/2020, 10/04/2007 COVID-19 Vaccine ( season) 2024 08/22/2022, 02/13/2022, 10/16/2021, Additional history exists PHQ-2 (Physician [place]) 11/08/2024 Mammogram Screening 09/24/2025 09/24/2023, 09/23/2022, 02/25/2022, Additional history exists RSV Immunization or 60+ Years (1 - 1-dose 75+ series) 2028 Dexa Scan (General) Completed 12/17/2023, 12/17/2023, 11/25/2021, Additional history exists Meningococcal B Vaccine Aged Out No l onger eligible based on patient's age to complete this topic Meningococcal Vaccine Aged Out No ellie edmund eligible based on patient's age to complete this topic RSV Immunizations Under 20 Months Aged Out No longer eligible based on patient's age to complete [place] [address] MEDICARE [facility] Care Teams Nonfarm Animal Caretaker Relationship Specialty Start Date End Date Carmine George MD [address] [facility] [place] [address] PCP - General FAMILY PRACTICE 12/08/23
--- OUTSIDE RECORDS SUMMARY | 2025-03-24 17:19 | XMS_ITS | Clinical Summary ---
Author Organization [facility] Address [address] [place] [address] Care Team Providers Care Meat Carrier Name Role Phone Unavailable Primary Care Provider Unavailabl e Source Comments [facility],non-owned Affiliates and Associated Physician Practices is amultiple site organization consisting of ambulatory clinics and hospital sitesin [place], [place], [place] and [place]. This disclosure is being madepursuant to the Care Everywhere program and may not contain all information available regarding this patient. 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 Gender Identity Not on file Sexual Orientation Not on file Plan of Treatment Health Maintenance Due Date Last Done Comments BONE DENSITY TESTING 1955 COLOGUARD (AGES 45-75) - COL ON CA SCREENING 1955 COLON MONITORING 1955 COLONOSCOPY - COLON CA SCREENING 1955 CT COLONOGRAPHY - COLON CA SCREENING 1955 Colorectal Cancer Screening 1955 FIT - COLON CA SCREENING 1955 FLEX SIG - COLON CA SCREENING 1955 LIPID TESTING 1955 MAMMOGRAM 1955 MEDICARE AWV 12 MONTHS 1955 HEPATITIS C SCREENING 11/16/1971 DTAP/TDAP/TD VACCINES (1 - Tdap) 1972 PNEUMOCOCCAL VACCINE 50+ (1 of 1 - PCV) 2003 ZOSTER VACCINE (1 of 2) 2003 COVID-19 VACCINE ( - 2023-2 5 season) 2024 DEPRESSION SCREENING 11/08/2024 INFLUENZA VACCINE (Season Ended) 2025 Respiratory Syncytial Virus (RSV) Vaccine Pt: or over 60 yrs (1 - 1-dose 75+ series) 2028 HEPATITIS B VACCINE Aged Out No longe r eligible based on patient's age to complete this topic HIB VACCINE Aged Out No longer eligi ble based on patient's age to complete this topic HPV VACCINE Aged Out No longer eligi ble based on patient's age to complete this topic MENINGOCOCCAL (Group B) VACC INE SHARED DECISION-MAKING Aged Out No longer eligibl e based on patient's age to complete this topic MENINGOCOCCAL GROUPS A/C/Y/W VACCINE Aged Out No longer eligible b ased on patient's age to complete this topic Insurance MEDICARE [facility] MEDICARE [facility] MEDICARE [facility] MEDICARE [facility]
--- OUTSIDE RECORDS SUMMARY | 2025-03-24 17:19 | XMS_ITS | Clinical Summary ---
Author Organization [facility] Address [address] [place] [address] Phone Care Team Providers Care Beating Machine Operator Name Role Phone Carmine George MD Primary Care Provider [phone] Allergies Active Allergy Reactions Criticality Noted Date Comments Adhesive Rash Low 02/02/2013 Steri-strips Aspirin Rash Low 01/23/2013 Dicloxacillin Hives High 02/26/2024 Hydrocodone Itching High Sulfa (Sulfonamide Antibiotics) Shortness of Breath/Wheezing High 02/02/2013 Tramadol Hcl Itching High Medications valACYclovir (VALTREX) 500 mg tablet Take 500 mg by mouth daily at bedtime. Active rosuvastatin (CRESTOR) 40 mg tablet Take 1 Tablet by mouth daily at bedtime. 9 Active amLODIPine (NORVASC) 5 mg tablet Take 5 mg by mouth daily. Active carvediloL (COREG) 12.5 mg tablet Take 12.5 mg by mouth 2 times daily with meals. Active olmesartan (BENICAR) 20 mg tablet Take 20 mg by mouth daily. Active coenzyme Q10 100 mg Capsule Take 100 mg by mouth daily. Active cholecalciferol (vitamin D3) 125 mcg (5,000 unit) capsule Take 5,000 Units by mouth daily. Active metFORMIN (GLUCOPHAGE) 1,000 mg tablet Take 1,000 mg by mouth 2 times daily with meals. Active meloxicam (MOBIC) 7.5 mg tablet Take 7.5 mg by mouth daily. Tk 1 t po daily for inflammation Active Mounjaro 5 mg/0.5 mL Pen Injector 7.5 mL. 3 Active OTHER Super C with D3 and Zinc 900 mg C 25 mcg D and 11 mg zinc Active pregabalin (LYRICA) 75 mg Capsule 4 Active rOPINIRole (REQUIP) 1 mg tablet Take 1 mg by mouth 2 times daily. 4 Active sertraline (ZOLOFT) 100 mg tablet Take 100 mg by mouth daily. Active alendronate (FOSAMAX) 70 mg tablet Take 1 Tablet (70 mg) by mouth every 7 days. empty stomach before other meds,with 8oz of water, stay upright 30 min 10 Tablet 3 4 Active anastrozole (ARIMIDEX) 1 mg tabletIndicatio ns:Invasive ductal carcinoma of breast, left (CMS/HCC),Use of aromatase inhibitors,Post -menopausal TAKE 1 TABLET(1 MG) BY MOUTH DAILY 90 Tablet 3 5 Active Active Problems Patient Care Coordination No te Formatting of this note migh t be different from the original. 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 MAKING INSTRUCTOR): On AI mammo January Assessment & Plan (02/22/2013 4:04 PM CDT): IOV abn mammo Oct 2011 3 lesions Will get Onctype ROV COPD (chronic obstructive pulmonary disease) RLS (restless legs syndrome) Resolved Problems Problem Noted Date Diagnosed Date Resolved Date Cellulitis 03/10/2013 06/24/2013 Encounters Date Type Department Care Team Description 03/07/2025 1:30 PM CDT Office Visit [facility] Oncology and Hematology [facility] [[email or web address] [address] [place] [address] Heather Alvarez MD Schwarz, Michelle Elizabeth, LEGAL ENTITY CONTROLLER Invasive ductal carcinoma of breast, left (CMS/HCC) (Primary Dx); History of breast cancer 03/07/2025 1:12 PM CDT - 03/07/2025 11:59 PM CDT Hospital Encounter [facility] Laboratory Oncology Services [facility] [[email or web address]] [address] [place] [address] Heather Alvarez MD Discharge Disposition: Home or Self Care 03/07/2025 12:11 PM CDT - 03/07/2025 11:59 PM CDT Hospital Encounter [facility] Laboratory Oncology Services [facility] [[email or web address]] [address] [place] [address] Heather Alvarez MD Discharge Disposition: Home or Self Care 02/27/2025 Orders Only [facility] Oncology and Hematology [facility] [[email or web address]] [address] [place] [address] Heather Alvarez MD Invasive ductal carcinoma of breast, left (CMS/HCC) (Primary Dx); Use of aromatase inhibitors; Post-menopausal; Wound of left breast, subsequent encounter; Personal history of malignant neoplasm of breast; Fitting and adjustment of left breast prosthesis; Chronic skin ulcer, unspecified ulcer stage (CMS/HCC) from Last 3 Months Immunizations Immunization Administration Dates Next Due ([employer]) COVID-19 VACCINE - EMERGENCY USE AUTHORIZATION, AD26,COV2S(PF) 0.5 ML IM SUSP 01/13/2021 INFLUENZA VACCINE HIGH DOSE QUADRIVALENT 65 YR UP PF IM 08/10/2023,08/26/2021 Influenza Seasonal Unspecified Formulation IM Family History Medical History Relation Name Comments Heart Disease Brother Breast Cancer Half-Sister Cancer Half-Sister Colon Cancer Maternal Aunt Heart Disease Maternal Grandfather Cancer Maternal Grandmother cervica l cancer - age unknown Cancer Mother pelvic mass; d from RT SEs Heart Disease Sister Ovarian Cancer Neg Hx Uterine Cancer Neg Hx Relation Name Status Comments Brother Half-Sister Maternal Aunt Maternal Grandfather Maternal Grandmother (Age 94) Mother Sister Social History Tobacco Use Types Packs/Day Years Used Date Smoking Tobacco: Former Cigarettes 1 30 0 11/08/1968 - 11/08/1998 Smokeless Tobacco: Never Tobacco Cessation:Counseling Given: Not Answered Alcohol Use Standard Drinks/Week Comments Not Currently 0 (1 standard drink = 0.6 oz pur e alcohol) Feeling Safe Answer Date Recorded Are you in a relationship wi th someone who hurts you emotionally and/or physically? 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 [employer] Not on file Not on file Not on file Last Filed Vital Signs Vital Sign Reading Time Taken Comments Blood Pressure 142/77 03/07/2025 1:24 PM CDT Pulse 73 03/07/2025 1:24 PM CDT Temperature 36.2 C (97.2 F) 03/07/2025 1:24 PM CDT Respiratory Rate 16 03/07/2025 1:24 PM CDT Oxygen Saturation 95% 03/07/2025 1:24 PM CDT Inhaled Oxygen Concentration - - Weight 105.4 kg (232 lb 6.4 oz) 03/07/2025 1:24 PM CDT Height 172.7 cm (5' 8 ) 03/07/2025 1:24 PM CDT Body Mass Index 35.34 03/07/2025 1:24 PM CDT Plan of Treatment Upcoming Encounters Date Type Department Care Team (Late st Contact Info) Description 09/11/2025 1:00 PM JEWELRY MAKING INSTRUCTOR Office Visit [facility] Oncology and Hematology [facility] [[email or web address]] [address] [facility] [address] [place] [address] [place] [address] [facility] [address] [place] [address] Health Maintenance Due Date Last Done Comments DIABETES ANNUAL FOOT EXAM 1971 DIABETES ANNUAL RETINAL EXAM 1971 DIABETES MICROALBUMIN ANNUAL SCREEN 1971 DTAP/TDAP/TD VACCINES (1 - Tdap) 1972 PNEUMOCOCCAL VACCINE 50+ YEA RS (1 of 2 - PCV) 1972 FIT-DNA Q 3 years 1998 FIT/FOBT Q 1 year 1998 Flex Sig/CT Colonography Q 5 years 1998 ZOSTER VACCINE (1 of 2) 2003 RSV VACCINE (60+ or ) (1 - Risk 60-74 years 1-dose series) 2013 LDL CHOLESTEROL ANNUAL 06/18/2016 5, 03/28/2014, 12/09/2012 INFLUENZA VACCINE (#1) 2024 3, 08/26/2021, 08/10/2018, Additional history exists COVID-19 Vaccine (2 - 2023-2 5 season) 2024 01/13/2021 DIABETES HBA1C Q 6 MONTHS 11/24/20242023, 05/17/2024, 05/17/2024, Additional history exists BREAST CANCER SCREENING 09/11/2025 09/11/20 24, 09/11/2024, 09/24/2023, Additional history exists OSTEOPOROSIS SCREENING 12/17/2028 , 12/17/2023, 11/25/2021, Additional history exists COLORECTAL SCREENING 12/24/2033 12/24/2023, 12/24/2023, 10/17/2013 Colorectal Cancer Screening 12/24/2033 Medical Devices Implanted Type Area Grain Trader Device Identifier Shelf Expiration Date Model / Serial / Lot Hooking Machine Operator Clip Surgiclip Iii Ti Molina Sm 9in [id number] - [id number] Implanted:Qty: 1 on 08/05/2021 by Delaney Aggarwal MD at [facility] Clip Left: Breast [employer] - COVIDIEN [id number] 03/07/2026 [id number] / / [id number] Hemostatic Surgicel 2x14in 1950 - [id number] Implanted:Qty: 1 on 08/05/2021 by Delaney Aggarwal MD at [facility] Hemostatic Left: Breast [employer] 11/07/20251950 / / [id number] Hemostatic Surgicel 2x3in 1952 - [id number] Implanted:Qty: 1 on 11/10/2022 by Delaney Aggarwal MD at [facility] Hemostatic Left: Breast [employer] 12/08/20261952 / / [id number] Negative Checker Microvasc Anastomotic 4.0mm [id number] - [id number] Implanted:Qty: 1 on 02/07/2013 by Sandip Lucio MD at [facility] Other Left: Breast [employer] 06/07/2017 [id number] / / [id number] Marker Biozorb [id number] Lprfl F0231 - [id number] Implanted:Qty: 1 on 08/05/2021 by Delaney Aggarwal MD at [facility] Other HOLOGIC/SUROS 12/08/2022 [id number] / / [id number] Procedures Procedure Name Priority Date/Time Associated Diagnosis Comments COMPREHENSIVE METABOLIC PANEL Stat 03/07/2025 12:11 PM CDT Invasive ductal carcinoma of breast, left (CMS/HCC) Use of aromatase inhibitors Post-menopausal Wound of left breast, subsequent encounter Personal history of malignant neoplasm of breast Fitting and adjustment of left breast prosthesis Chronic skin ulcer, unspecified ulcer stage (CMS/HCC) CBC WITH DIFFERENTIAL Stat 03/07/2025 12:11 PM CDT Invasive ductal carcinoma of breast, left (CMS/HCC) Use of aromatase inhibitors Post-menopausal Wound of left breast, subsequent encounter Personal history of malignant neoplasm of breast Fitting and adjustment of left breast prosthesis Chronic skin ulcer, unspecified ulcer stage (CMS/HCC) MAMMO DIAG UNI RIGHT 3D ARIE W OR WO CAD Routine 09/11/2024 12:58 PM JEWELRY MAKING INSTRUCTOR Invasive ductal carcinoma of breast, left (CMS/HCC) Personal history of malignant neoplasm of breast HEMOGLOBIN A1C Routine 05/17/2024 XR DEXA BONE DENSITY AXIAL 1 OR MORE SITES Routine 12/17/2023 9:47 AM JEWELRY MAKING INSTRUCTOR Use of aromatase inhibitors Post-menopausal LIPID PANEL Routine 06/18/2015 from Last 3 Months or Most Recently Relevant to Health Maintenance Results * (ABNORMAL) CBC WITH DIFFERENTIAL (03/07/2025 12:11 PM CDT) WBC 7.3 4.5 - 10.5 K/uL 03/07/2025 12:37 PM CDT [facility] RBC 3.86(L) 3.90 - 4.90 M/uL 03/07/2025 12:37 PM CDT [facility] HEMOGLOBIN 12.5 11.8 - 14.8 g/dL 03/07/2025 12:37 PM CDT [facility] HEMATOCRIT 36.9 35.5 - 44.0 % 03/07/2025 12:37 PM CDT [facility] MCV 95.7 82.0 - 99.0 fL 03/07/2025 12:37 PM CDT [facility] MCH 32.3 27.8 - 34.5 pg 03/07/2025 12:37 PM CDT [facility] MCHC 33.8 32.5 - 35.5 g/dL 03/07/2025 12:37 PM CDT [facility] RDW 14.8(H) 11.5 - 14.5 % 03/07/2025 12:37 PM CDT [facility] PLATELETS 250 160 - 420 K/uL 03/07/2025 12:37 PM CDT [facility] MPV 7.6(L) 8.7 - 12.7 fL 03/07/2025 12:37 PM CDT [facility] NEUTROPHILS 58 % 03/07/2025 12:37 PM CDT [facility] LYMPHOCYTES 28 % 03/07/2025 12:37 PM CDT [facility] MONOCYTES 10 % 03/07/2025 12:37 PM CDT [facility] EOSINOPHILS 3 % 03/07/2025 12:37 PM CDT [facility] BASOPHILS 1 % 03/07/2025 12:37 PM CDT [facility] NEUTROPHIL ABSOLUTE 4.30 1.90 - 7.00 K/uL 03/07/2025 12:37 PM CDT [facility] LYMPHOCYTE ABSOLUTE 2.10 0.70 - 4.50 K/uL 03/07/2025 12:37 PM CDT [facility] MONOCYTE ABSOLUTE 0.70 0.10 - 1.30 K/uL 03/07/2025 12:37 PM CDT [facility] EOSINOPHIL ABSOLUTE 0.20 0.00 - 0.70 K/uL 03/07/2025 12:37 PM CDT [facility] BASOPHILS ABSOLUTE 0.10 0.00 - 0.20 K/uL 03/07/2025 12:37 PM CDT [facility] Blood Venipuncture / Unknown 03/07/2025 12:11 PM CDT 03/07/2025 12:31 PM CDT us Heather Alvarez MD HEMATOLOGY ORDERABLES Fi nal Result [facility] CLIA#[id number] [place] [address] * (ABNORMAL) COMPREHENSIVE METABOLIC PANEL (03/07/2025 12:11 PM CDT) SODIUM 140 136 - 145 mmol/L 03/07/2025 1:27 PM CDT [facility] POTASSIUM 4.2 3.4 - 5.1 mmol/L 03/07/2025 1:27 PM CDT [facility] CHLORIDE 102 98 - 107 mmol/L 03/07/2025 1:27 PM CDT [facility] CO2 25 22 - 29 mmol/L 03/07/2025 1:27 PM CDT [facility] CALCIUM 9.1 8.6 - 10.4 mg/dL 03/07/2025 1:27 PM CDT [facility] BUN 19 6 - 20 mg/dL 03/07/2025 1:27 PM CDT [facility] CREATININE 0.79 0.51 - 0.95 mg/dL 03/07/2025 1:27 PM CDT [facility] Comment:The GFR result is no t clinically significant on patients <18 or >70 years of age. GLUCOSE 154(H) 74 - 99 mg/dL 03/07/2025 1:27 PM CDT [facility] TOTAL PROTEIN 6.9 6.3 - 8.7 g/dL 03/07/2025 1:27 PM CDT [facility] ALBUMIN 4.0 3.5 - 5.2 g/dL 03/07/2025 1:27 PM CDT [facility] BILIRUBIN TOTAL 0.2 0.0 - 1.1 mg/dL 03/07/2025 1:27 PM CDT [facility] ALKALINE PHOSPHATASE 41 40 - 150 U/L 03/07/2025 1:27 PM CDT [facility] AST 23 0 - 33 U/L 03/07/2025 1:27 PM CDT [facility] ALT 19 0 - 33 U/L 03/07/2025 1:27 PM CDT [facility] GFR >60 mL/min/1.7 3 sq meter 03/07/2025 1:27 PM CDT [facility] Comment:eGFR calculated with 2020 CKD-EPI equation. Vegetarian diet, extremely high or low muscle mass, and may affect results. Cystatin C with Glomerular Filtration Rate is a suitable alternative for these patients. ANION GAP 13 8 - 16 mmol/L 03/07/2025 1:27 PM CDT [facility] Blood Venipuncture / Unknown 03/07/2025 12:11 PM CDT 03/07/2025 12:31 PM CDT Heather Alvarez MD CHEMISTRY ORDERABLES Fin al Result [facility] [id number] [address] [place] [address] * MAMMO 3D ARIE DIAGNOSTIC UNI RT 3D W OR WO CAD (09/11/2024 12:58 PM JEWELRY MAKING INSTRUCTOR) Anatomical Region Laterality Modality Breast Right Mammography 09/11/2024 12:5 8 PM JEWELRY MAKING INSTRUCTOR Impressions 09/11/2024 1:28 PM JEWELRY MAKING INSTRUCTOR IMPRESSION: No mammographic evidence of malignancy in the right breast. Routine screening mammography is recommended in one year. OVERALL FINAL ASSESSMENT: BI-RADS CATEGORY 2 - Benign. DICTATION LOCATION: [facility] Narrative 09/11/2024 1:28 PM JEWELRY MAKING INSTRUCTOR EXAMINATION: UNILATERAL RIGHT DIAGNOSTIC DIGITAL MAMMOGRAPHY WITH TOMOSYNTHESIS AND CAD DATE: 09/11/2024 12:58 PM HISTORY: 68-year-old woman with remote personal history of left breast cancer status post mastectomy. COMPARISON: 09/24/2023, 02/25/2022, 06/03/2021. TECHNIQUE: Right unilateral diagnostic mammogram was performed. Full field digital mammograms, and digital breast tomosynthesis with C-view performed. Examination is read in conjunction with computer aided detection. BREAST COMPOSITION: There are scattered areas of fibroglandular density. FINDINGS: There are stable benign postoperative changes in the right breast, including areas of fat necrosis. No new suspicious findings are identified in the right breast mammogram. Computer aided detection was used in the interpretation of this examination. Procedure Note Bo Waterman MD - 09/11/2024 EXAMINATION: UNILATERAL RIGHT DIAGNOSTIC DIGITAL MAMMOGRAPHY WITH TOMOSYNTHESIS AND CAD DATE: 09/11/2024 12:58 PM HISTORY: 68-year-old woman with remote personal history of left breast cancer status post mastectomy. COMPARISON: 09/24/2023, 02/25/2022, 06/03/2021. TECHNIQUE: Right unilateral diagnostic mammogram was performed. Full field digital mammograms, and digital breast tomosynthesis with C-view performed. Examination is read in conjunction with computer aided detection. BREAST COMPOSITION: There are scattered areas of fibroglandular density. FINDINGS: There are stable benign postoperative changes in the right breast, including areas of fat necrosis. No new suspicious findings are identified in the right breast mammogram. Computer aided detection was used in the interpretation of this examination. IMPRESSION: No mammographic evidence of malignancy in the right breast. Routine screening mammography is recommended in one year. OVERALL FINAL ASSESSMENT: BI-RADS CATEGORY 2 - Benign. DICTATION LOCATION: [facility] Heather Alvarez MD MAMMO ORDERABLES Final R esult * HEMOGLOBIN A1C (05/17/2024) ABSTRACTED HGB A1C 6.1 % [facility] Blood 05/17/2024 us Abstract Provider CHEMISTRY ORDERABLES Final Res ult [facility] * XR DEXA BONE DENSITY AXIAL 1 OR MORE SITES (12/17/2023 9:47 AM JEWELRY MAKING INSTRUCTOR) Anatomical Region Laterality Modality Computed Radiogr aphy 12/17/2023 9:47 AM JEWELRY MAKING INSTRUCTOR Impressions 12/17/2023 11:12 AM JEWELRY MAKING INSTRUCTOR FINDINGS/IMPRESSION: Osteopenia with a lowest T score of -1.6, previously -1.2. Fracture risk is moderate. FRAX: 10 year probability of major osteoporotic fracture is 15.0 %. 10 year probability of hip fracture is 2.1 %. Please refer to the full report available in [facility] under the PACS Images tab. If a faxed copy is needed, please call [phone]. DICTATION LOCATION: [facility] Narrative 12/17/2023 11:12 AM JEWELRY MAKING INSTRUCTOR SUMMARY DEXA REPORT DATE: 12/17/2023 9:47 AM INDICATION: Postmenopausal Procedure Note Yessi Ho MD - 12/17/2023 SUMMARY DEXA REPORT DATE: 12/17/2023 9:47 AM INDICATION: Postmenopausal FINDINGS/IMPRESSION: Osteopenia with a lowest T score of -1.6, previously -1.2. Fracture risk is moderate. FRAX: 10 year probability of major osteoporotic fracture is 15.0 %. 10 year probability of hip fracture is 2.1 %. Please refer to the full report available in [facility] under the PACS Images tab. If a faxed copy is needed, please call [phone]. DICTATION LOCATION: [facility] Heather Alvarez MD DIAGNOSTIC IMAGING ORDER GENEVIEVE Final Result * (ABNORMAL) LIPID PANEL (06/18/2015) Blood specimen (specimen) Carmine George MD CHEMISTRY ORDERABLES Edited Res ult - Final [facility] [email or web address] [facility]# [id number] [address] [address] from Last 3 Months or Most Recently Relevant to Health Maintenance Insurance MEDICARE PART A AND B [facility] RX [employer] Medicare Part D RX [employer] (INTERNAL) [facility] Internal Plans Advance Directives For more information, please contact: [phone] * Full Code (Latest Code Status on File) Date Activated Date Inactivated Comments 06/12/2024 7:34 AM 06/12/2024 1:38 PM * Full Code Date Activated Date Inactivated Comments 04/05/2013 12:33 PM 04/05/2013 8:35 PM * Full Code Date Activated Date Inactivated Comments 04/05/2013 12:23 PM 04/05/2013 12:33 PM * Full Code Date Activated Date Inactivated Comments 03/06/2013 5:53 PM 03/06/2013 10:34 PM * Full Code Date Activated Date Inactivated Comments 02/07/2013 9:11 PM 02/10/2013 12:05 PM Care Teams Beating Machine Operator Relationship Specialty Start Date End Date Carmine George MD [address] [place] [address] PCP - General Family Practice 01/23/13
--- OUTSIDE RECORDS SUMMARY | 2025-03-24 17:19 | XMS_ITS | Referral Summary ---
Author Organization [address] Address [address] [place] [address] Care Team Providers Care It Program Auditor Name Role Phone Carmine George MD Primary Care Provider [phone] Encounters Date Type Department Care Team Description 03/14/2025 1:15 PM CDT Office Visit [facility] Otolaryngology [address] [place] [phone] Jadiel Sears MD Dysfunction of both eustachian tubes (Primary Dx) from Last 3 Months Allergies Active Allergy Reactions Criticality Noted Date Comments Adhesive Blisters High 12/28/2023 Aspirin Rash Medium 12/28/2023 Doxycycline Hives Medium 09/13/2024 Sulfa Shortness of breath High 12/28/2023 Tramadol Itching Low 12/28/2023 Medications anastrozole (ARIMIDEX) 1 mg tablet Take 1 tablet (1 mg total) by mouth daily 4 Active cholecalcifero l (VITAMIN D-3) 5,000 unit capsule Take 1 capsule (5,000 Units total) by mouth daily Active meloxicam (MOBIC) 7.5 mg tablet Take 1 tablet (7.5 mg total) by mouth daily Active olmesartan (BENICAR) 20 mg tablet Take 1 tablet (20 mg total) by mouth daily Active rosuvastatin (CRESTOR) 40 mg tablet Take 1 tablet (40 mg total) by mouth daily 9 Active rOPINIRole (REQUIP) 1 mg tablet Take 1 tablet (1 mg total) by mouth 3 (three) times a day Active alendronate (FOSAMAX) 70 mg tablet Take 1 tablet (70 mg total) by mouth once a week 4 Active amLODIPine (NORVASC) 5 mg tablet Take 1 tablet (5 mg total) by mouth daily Active carvediloL (COREG) 12.5 mg tablet Take 1 tablet (12.5 mg total) by mouth every 12 (twelve) hours Active pregabalin (LYRICA) 75 mg capsule 4 Active Mounjaro 5 mg/0.5 mL pen injector ADMINISTER 5 MG UNDER THE SKIN WEEKLY 4 Active valACYclovir (VALTREX) 500 mg tablet Take 1 tablet (500 mg total) by mouth daily Active coenzyme Q10 100 mg capsule Take 1 capsule (100 mg total) by mouth daily Active sertraline (ZOLOFT) 100 mg tablet Take 1 tablet (100 mg total) by mouth daily 4 Active metFORMIN (GLUCOPHAGE) 500 mg tablet Take 2 tablets (1,000 mg total) by mouth 2 (two) times a day 4 Active multivit-min/f errous fumarate (MULTI VITAMIN ORAL) Take by mouth Active calcium carbonate-hilario min D3 1,500 mg (600 mg elemental)-200 unit capsule Take by mouth Act destini biotin 10,000 mcg capsule Take by mouth 03/14/20 Discontinu ed(Therapy completed) vitamin b complex tablet Take 1 tablet by mouth daily 03/14/20 25 Discontinu ed(Therapy completed) ascorbic acid (ascorbic acid with leopoldo hips) 500 mg tablet,chewabl e 03/14/20 Discontinu ed(Therapy completed) krill oil/omega-3/dh a/epa (FISH OIL WITH KRILL ORAL) Take by mouth 03/14/20 25 Discontinu ed(Therapy completed) zinc sulfate 50 mg zinc (220 mg) tablet Take 1 tablet (220 mg total) by mouth daily 03/14/20 25 Discontinu ed(Therapy completed) Active Problems Problem Noted Date Diagnosed Date Foreign body of left ear 09/13/2024 Assessment & Plan (09/13/2024 1:52 PM CARE NURSE RN): The tube was lying in the canal with a lot of wax and this was removed. She tolerated well. Tympanic membrane looks okay. Gastroesophageal reflux disease without esophagi tis 09/13/2024 Assessment & Plan (09/13/2024 1:56 PM CARE NURSE RN): I felt that using Tums was a good idea and she is using it on an as needed basis. She could try using Gaviscon instead. Ultimately if her symptoms continue I think she should probably see a program project analyst. She understands. Otalgia of both ears 12/28/2023 Assessment & Plan (12/28/2023 8:27 PM CARE NURSE RN): Likely due to Eustachian tube difficulties which can be pretty common with HBO therapy. Tubes can be very helpful and I recommended them. I do not find any other signs of trauma to her ears. Dysfunction of both eustachian tubes 12/28/2023 Assessment & Plan (03/19/2025 7:10 PM CDT): Her ears look pretty stable. She still has a tube on the right side. I recommended a follow-up in 6 months. She understands. Assessment & Plan (09/13/2024 1:51 PM CARE NURSE RN): Both ears look okay. She still has a functioning tube on the right side and the left tympanic membrane is healed completely. I am recommending no intervention. She can go ahead and get water in her left ear. I would like to have her follow up in about 6 months. Assessment & Plan (02/11/2024 6:08 PM CDT): Her tubes appear to be doing just fine. She is completed her HBO treatments. I am recommending that she keep her ears dry. Call if there is any signs of infection or discharge from either ear. Otherwise I would like to see her in about 6 months. Assessment & Plan (12/28/2023 8:27 PM CARE NURSE RN): I talked with her about this and I have recommended myringotomy tube placement which should help her get through the HBO treatments without all the pain. I discussed the procedure of placing tubes. The risk includes TM perforation and development of infection or otorrhea particularly with dirty water getting in the ears. There is a need to keep dirty water from getting in the ears. I would continue follow-up visits afterwards to check the tubes for potential development of a perforation. The tubes can always be removed after her HBO treatments are completed. She understands. She would like to go ahead and pursue that. Tubes were placed without difficulty. I am recommending a follow-up in 6 weeks. Also call if she has any problems with discharge pain. Social History Tobacco Use Types Packs/Day Years Used Date Smoking Tobacco: Former Cigarettes Smokeless Tobacco: Never Tobacco Cessation:Counseling Given: Not Answered Comments Unknown Sex and Gender Information Value Date Recorded Sex Assigned at Not on file Legal Sex Female 2:13 AM CARE NURSE RN Gender Identity Not on file Sexual Orientation Not on file Last Filed Vital Signs Vital Sign Reading Time Taken Comments Blood Pressure - - Pulse - - Temperature - - Respiratory Rate 18 03/14/2025 1:27 PM CDT Oxygen Saturation - - Inhaled Oxygen Concentration - - Weight 104.3 kg (230 lb) 03/14/2025 1:27 PM CDT Height 175.3 cm (5' 9 ) 03/14/2025 1:27 PM CDT Body Mass Index 33.97 03/14/2025 1:27 PM CDT Plan of Treatment Not on file Insurance MEDICARE [facility] [place] [address] [place] [id number] Care Teams It Program Auditor Relationship Specialty Start Date End Date Carmine George MD PCP - General Family Medicine 12/28/23
--- OUTSIDE RECORDS SUMMARY | 2025-03-24 17:19 | XMS_ITS | Continuity of Care Document ---
Author Organization [facility] Address [address] [place] [address] Phone Care Team Providers Care Customer Loyalty Representative Name Role Phone Karen Og DPT Unavailable Unavailable Procedures Procedure Date PT RE-EVALUATION THERAPEUTIC EXERCISES NEUROMUSCULAR RE-ED [place] Last THERAPEUTIC EXERCISES NEUROMUSCULAR RE-ED MANUAL THERAPY THERAPEUTIC EXERCISES NEUROMUSCULAR RE-ED FUNC ACTIVITY 15 MIN THERAPEUTIC EXERCISES NEUROMUSCULAR RE-ED MANUAL THERAPY FUNC ACTIVITY 15 MIN THERAPEUTIC EXERCISES NEUROMUSCULAR RE-ED FUNC ACTIVITY 15 MIN THERAPEUTIC EXERCISES NEUROMUSCULAR RE-ED MANUAL THERAPY FUNC ACTIVITY 15 MIN THERAPEUTIC EXERCISES FUNC ACTIVITY 15 MIN PT EVALUATION THERAPEUTIC EXERCISES Advance Directives Directive Yes / No Effective Date File Name No Information Encounters Encounter Description Practice Location Reason(s) For Visit Diagnoses Date Provider Providers Copied on Encounter [facility], [address], [place], [place], [id number], tel:[phone] [place] No Information 3 Lenka Jones. [address], [address], [place], [facility], . tel: [phone] [address], [place], [place], [id number], tel:[phone] [place] No Information 3 Og Karen. [address] [place] [address], [address], [place], [facility], . tel: [phone] Referring Provider: Sandip Lucio, [address] [place] [address] [address], [place], [address]. tel:[phone] [address], [place], [place], [id number], tel:[phone] [place] No Information 3 Og Karen. [address] [place] [address], [address], [place], [facility], . tel: [phone] Referring Provider: Sandip Lucio, [address] [place] [address] [address] [facility], [place], [address]. tel:[phone] [address], [place], [place], [id number], [place] tel:[phone] [place] No Information 3 Jeffrey Francis. [address] [place] [address], [facility] [address], [place], [facility], . tel: [phone] Referring Provider: Sandip Lucio, [address] [place] [address] [address], [place], [address]. tel:[phone], [place], [id number], [place] tel:[phone] [place] No Information 3 Og Karen. [address] [place] [address], [address], [place], [facility], . tel: [phone] Referring Provider: Sandip Lucio, [address] [place] [address] [address], [place], [address]. tel:[phone], [id number], tel:[phone] [place] No Information 3 Og Karen. [address] [place] [address], [place] [address], . tel:[phone] Referring Provider: Sandip Lucio, [address] [place] [address] [place] [address], [facility]. tel:[phone], [id number], tel:[phone] [place] No Information 3 Og Karen. [address] [place] [address], [place] [address], . tel:[phone] Referring Provider: Sandip Lucio, [address] [place] [address] [place] [address], [facility]. tel:[phone], [id number], tel:[phone] [place] No Information 3 Og Karen. [address] [place] [address], [place] [address], . tel:[phone] Referring Provider: Sandip Lucio, [address] [place] [address] [place] [address], [facility]. tel:[phone], [id number], tel:[phone] [place] Pain in joint involving shoulder region 3 Og Karen. [address] [place] [address], [place] [address], . tel:[phone] Referring Provider: Sandip Lucio, [address] [place] [address] [place] [address], [facility]. tel:[phone] Family History Family Member Type Diagnosis Age At Onset No Information Payers Payer name Insurance type Covered republican ID Sommer henley(s) Cigna [id number] Social History Type Description Quantity Date Captured [...]
--- OUTSIDE RECORDS SUMMARY | 2025-03-24 17:19 | XMS_ITS | Clinical Summary ---
Author Organization [facility] [address] Address [address] [place] [address] Care Team Providers Care Pullman Clerk Name Role Phone Carmine George MD Primary Care Provider [phone] Allergies Active Allergy Reactions Criticality Noted Date [...] 10,000 mcg capsule Take by mouth 03/14/20 25 Discontinu ed(Therapy completed) vitamin b complex tablet Take 1 tablet by mouth daily 03/14/20 25 Discontinu ed(Therapy completed) ascorbic acid (ascorbic acid with leopoldo hips) 500 mg tablet,chewabl e 03/14/20 25 Discontinu ed(Therapy completed) krill oil/omega-3/dh a/epa (FISH OIL WITH KRILL ORAL) Take by mouth 03/14/20 25 Discontinu ed(Therapy completed) zinc sulfate 50 mg zinc (220 mg) tablet Take 1 tablet (220 mg total) by mouth daily 03/14/20 25 Discontinu ed(Therapy completed) Active Problems Problem Noted Date Diagnosed Date Foreign body of left ear 09/13/2024 Assessment & Plan (09/13/2024 1:52 PM DRY WALL INSTALLER): The tube was lying in the canal with a lot of wax and this was removed. She tolerated well. Tympanic membrane looks okay. Gastroesophageal reflux disease without esophagi tis 09/13/2024 Assessment & Plan (09/13/2024 1:56 PM DRY WALL INSTALLER): I felt that using Tums was a good idea and she is using it on an as needed basis. She could try using Gaviscon instead. Ultimately if her symptoms continue I think she should probably see a elementary tutor. She understands. Otalgia of both ears 12/28/2023 Assessment & Plan (12/28/2023 8:27 PM DRY WALL INSTALLER): Likely due to Eustachian tube difficulties which [...] understands. Assessment & Plan (09/13/2024 1:51 PM DRY WALL INSTALLER): Both ears look okay. She still has [...] months. Assessment & Plan (12/28/2023 8:27 PM DRY WALL INSTALLER): I talked with her about this and [...] she has any problems with discharge pain. Encounters Date Type Department Care Team Description 03/14/2025 1:15 PM CDT Office Visit [facility] Otolaryngology [address] [place] [address] Jadiel Sears MD Dysfunction of both eustachian tubes (Primary Dx) from Last 3 Months Surgical History Surgery Date Site/Laterality Comments BREAST LUMPECTOMY 08/05/2021 BREAST RECONSTRUCTION TUBAL LIGATION 11/08/1985 - 11/07/1986 HAND SURGERY Left 2004, 2005, 2006 MASTECTOMY 11/08/2012 - 11/07/2013 WRIST SURGERY 11/08/2013 - 11/07/2014 Bilateral 2015, BREAST SURGERY 06/12/2024 Left Wound closure left breast TYMPANOSTOMY TUBE PLACEMENT 12/28/2023 Bilateral Medical History Medical History Date Comments Cancer (HCC) Diabetes (HCC) Restless leg syndrome HTN (hypertension) Ear problems Wound, breast Left Family History Medical History Relation Name Comments No Known Problems Father No Known Problems Mother Relation Name Status Comments Father Mother Social History Tobacco Use Types Packs/Day Years Used Date Smoking Tobacco: Former Cigarettes Smokeless Tobacco: Never Tobacco Cessation:Counseling Given: Not Answered Comments Unknown Sex and Gender Information Value Date Recorded Sex Assigned at Not on file Legal Sex Female 2:13 AM DRY WALL INSTALLER Gender Identity Not on file Sexual Orientation Not on file Obstetrics History Last Filed Vital Signs Vital Sign Reading [...] 03/14/2025 1:27 PM CDT Plan of Treatment Health Maintenance Due Date Last Done Comments Colon Cancer Screening-Colonoscopy 1955 Depression Screening 1953 Fall Risk Assessment 1955 Hepatitis C Screening 1955 DTaP/Tdap/Td Vaccine (1 - Tdap) 1964 Hepatitis B Screening 1971 Zoster Vaccine (1 of 2) 1972 Well Visit 65+ 2018 Pneumococcal vaccine 65+ (3 of 3 - PCV) 07/30/2021 07/30/2020, 10/04/2007 Breast Cancer Screening-Mammogram 06/03/2022 06/03/2021, 06/03/2020, 03/28/2019, Additional history exists Covid-19 Vaccine (2023-12 5 season) 2024 08/22/2022, 02/13/2022, 10/16/2021, Additional history exists Influenza Vaccine (Season Ended) 2025 08/10/2023, 08/22/2022, 08/26/2021, Additional history exists Osteoporosis Screening-Bone Density Scan 12/17/2025 12/17/2023, 12/17/2023, 11/25/2021, Additional [place] [address] MEDICARE [facility] [id number] [place] [id number] Care Teams Pullman Clerk Relationship Specialty Start Date End Date Camrine George MD PCP - General Family Medicine 12/28/23
--- OUTSIDE RECORDS SUMMARY | 2025-03-24 17:21 | XMS_ITS | Continuity of Care Document ---
Author Organization [facility] Address [address] [place] [address] Phone Care Team Providers Care Workgroup Leader Name Role Phone Karen Og DPT Unavailable [...] Diagnoses Date Provider Providers Copied on Encounter [facility], [address], [place], [place], [id number], tel:[phone] [place] No Information 3 Lenka Jones. [address] [facility], [address], [place], [facility], . tel: [phone] [address], [place], [place], [id number], tel:[phone] [place] No Information 3 Og Karen. [address] [place] [address], [address], [place], [facility], . tel: [phone] Referring Provider: Sandip Lucio, [address] [place] [address] [address], [place], [address]. tel:[phone] [address], [place], [place], [id number], tel:[phone] [place] No Information 3 Og Karen. [address] [place] [address], [address], [place], [facility], . tel: [phone] Referring Provider: Sandip Lucio, [address] [place] [address] [address] [facility], [place], [address]. tel:[phone] [address], [place], [place], [id number], [place] tel:[phone] [place] No Information 3 Jeffrey Francis. [address] [place] [address], [facility] [address], [place], [facility], . tel: [phone] Referring Provider: Sandip Lucio, [address] [place] [address] [address], [place], [address]. tel:[phone], [place], [id number], [place] tel:[phone] [place] No Information 3 Og Karen. [address] [place] [address], [address], [place], [facility], . tel: [phone] Referring Provider: Sandip Lucio, [address] [place] [address] [address], [place], [address]. tel:[phone], [id number], tel:[phone] [place] No Information 3 Og Karen. [address] [place] [address], [place] [address], . tel:[phone] Referring Provider: Sandip Lucio, [address] [place] [address] [place] [address], [facility]. tel:[phone], [id number], tel:[phone] [place] No Information 3 Og Karen. [address] [place] [address], [place] [address], . tel:[phone] Referring Provider: Sandip Lucio, [address] [place] [address] [place] [address], [facility]. tel:[phone], [id number], tel:[phone] [place] No Information 3 Og Karen. [address] [place] [address], [place] [address], . tel:[phone] Referring Provider: Sandip Lucio, [address] [place] [address] [place] [address], [facility]. tel:[phone], [id number], tel:[phone] [place] Pain in joint involving shoulder region 3 Og Karen. [address] [place] [address], [place] [address], . tel:[phone] Referring Provider: Sandip Lucio, [address] [place] [address] [place] [address], [facility]. tel:[phone] Family History Family Member Type Diagnosis Age At Onset No Information Payers Payer name Insurance type Covered alliance party ID Sommer henley(s) Cigna [id number] Social History Type Description Quantity Date [...]
--- OUTSIDE RECORDS SUMMARY | 2025-03-24 17:21 | XMS_ITS | Continuity of Care Document ---
Author Organization [facility] Address [id number] [place] [address] [place] [address] Phone Care Team Providers Care Cyber Systems Administrator Name Role Phone Francis Chavez DO Unavailable Unavailable Advance Directives Directive Yes / No Effective Date File Name No Information Encounters Encounter Description Practice Location Reason(s) For Visit Diagnoses Date Provider Providers Copied on Encounter [facility], [address], [place], [place], [id number], [place] tel:[phone] [facility] No Information Kathy Lara. [address] [place], [address], [place]. tel: [phone] Family History Family Member Type Diagnosis Age At Onset No Information Payers Payer name Insurance type Covered libertarian ID Authoriza tion(s) No Information Social History [...]
--- NOTE | 2025-03-24 17:24 | ED.GENADULT ---
HPI - General Adult General Chief complaint: Back Pain/Injury Stated complaint: L side back pain Time Seen by Provider: 03/24/25 17:24 Source: patient Mode of arrival: ambulatory Limitations: no limitations History of Present Illness HPI narrative: 69-year-old female patient presents to [facility] with complaints of left flank pain that radiates to the back. Patient states she has had this pain intermittently for about 2 weeks. Denies any pain with urination. Patient has had history of breast cancer twice most recent 1 was in 2021 and is currently in remission and is on estrogen blocking medication. Patient did have a colonoscopy done last year which does did show a cyst on her left ovary as well as cyst on her left kidney. Patient denies any fevers, body aches or chills. Denies any abdominal pain nausea vomiting or diarrhea. Related Data Home Medications Medication Instructions Recorded Confirmed Last Taken Type cholecalciferol (vitamin D3) 125 125 mcg PO DAILY 07/30/20 03/24/25 Unknown History mcg (5,000 unit) capsule anastrozole 1 mg tablet 1 mg PO DAILY 01/12/23 03/24/25 Unknown History alendronate 70 mg tablet mg PO ONCE 10/30/24 03/12/25 Unknown History calcium carbonate (Calcium 500) 1,200 mg PO DAILY 12/29/24 03/24/25 Unknown History Allergies Allergy/AdvReac Type Severity Reaction Status Date / Time doxycycline Allergy Intermediate rash Verified 03/24/25 17:40 aspirin Allergy Unknown Unknown Verified 03/24/25 17:40 Sulfa (Sulfonamide Allergy Unknown Unknown Verified 03/24/25 17:40 Antibiotics) sulfanilamide Allergy Unknown Unknown Verified 03/24/25 17:40 tramadol Allergy Unknown Unknown Verified 03/24/25 17:40 dapagliflozin (From Farxiga) AdvReac Mild yeast Verified 03/24/25 17:40 infection pregabalin (From Lyrica) AdvReac Mild Blurry Verified 03/24/25 17:40 Vision caffeine AdvReac Unknown Unknown Verified 03/24/25 17:40 RX pain meds Allergy Itching Uncoded 03/24/25 17:40 Review of Systems Review of Systems: CONSTITUTIONAL: Denies fever, chills, or sweats. EYES: Denies visual changes, redness, or discharge. ENT: Denies rhinorrhea, congestion, sore throat, or otalgia. CARDIOVASCULAR: Denies chest pain, palpitations, or edema. RESPIRATORY: Denies cough or dyspnea. GASTROINTESTINAL: Denies abdominal pain, nausea, vomiting, or diarrhea. Positive left flank pain that radiates to the left back GENITOURINARY: Denies dysuria or hematuria. SKIN: Denies rash or itching. MUSCULOSKELETAL: Denies back pain, joint pain, or myalgia. NEUROLOGIC: Denies headache, numbness, or weakness. PSYCHIATRIC: Denies anxiety or depression. [facility] Past Medical History Medical History Peripheral neuropathy Neuropathy Drug reaction Abnormal kidney function BMI 33.0-33.9,adult Left wrist pain At moderate risk for fall Uncontrolled diabetes mellitus Thickened endometrium History of radiation therapy Pneumonia Malignant neoplasm of central portion of left female breast Diverticulitis Labial lesion Chronic airway obstruction, not elsewhere classified History of breast cancer Carpal tunnel syndrome Trigger finger Breast cancer Depression Elevated lipids Hypertension Osteoporosis History of vaginal delivery x 3 Surgical History Surgical History History of placement of ear tubes Hx of bilateral breast reduction surgery History of dilation and curettage History of mastectomy History of bilateral tubal ligation History of shoulder surgery Family History Family History Sibling Family history of premature coronary heart disease Hypertension COPD (chronic obstructive pulmonary disease) Heart disease Mother Hypertension Family history of malignant neoplasm of cervix Family history of malignant neoplasm of urinary bladder, Onset Age: 76 Patient's mother is Family history of hypercholesterolemia Grandparent Family history of malignant neoplasm of cervix Cerebrovascular accident Father Heart disease Carcinoma of colon Other Asthma Family history of heart disease in male family member before age 55 Family history of malignant neoplasm of uterus Social History Social History Smoking packs per day: 1 Smoking cigarettes per day: 20.0 Years smoked: 30 Smoking pack-years: 30.00 Smoking status: Former smoker Tobacco type: cigarettes Second hand tobacco smoke exposure: Yes Smoking end date: 11/08/98 Alcohol intake: never Substance use: never Substance use type: does not use Do You Feel Safe in your Home?: Yes Lack of Transportation: No Lack of Food: Never True Current Housing: I Have Housing Concerned About Future Housing: No Difficulty Paying Gas/Electric Bills: No Difficulty Paying for Meds: No Currently Unemployed: No Education: Bachelor's Degree Difficulty w/ Childcare or Family Care: No Living arrangements: other Occupation/Education: 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 There is no relevant family history pertinent to the presenting complaint. Exam Narrative: GENERAL: Well-appearing, well-nourished, and in no acute distress. HEAD: Normocephalic, atraumatic. EYES: PERRLA and EOMI. ENT: Nares clear, no rhinorrhea or epistaxis. Mucous membranes moist. NECK: Supple. No lymphadenopathy CHEST: Clear to auscultation. No respiratory distress. HEART: Regular rate and rhythm. No murmur heard. Normal peripheral pulses. ABDOMEN: Soft, nontender, nondistended, normal active bowel sounds. slight CVA tenderness to left side EXTREMITIES: Normal range of motion. No edema. SKIN: Warm, dry, no rash. NEURO: No focal deficits. Alert and oriented x3. Course Course Level of Care: Express Care Visit Reevaluation(s) Reevaluation #1: re-evaluated patient notified her that the x-ray is suggestive of possible kidney stones that could be causing the left flank pain. Discussed with her we will send her home the strainer and I will also order her some Flomax to help her urinate and it is very important that she drinks plenty of water. Discussed with her I would recommend that she call her primary doctor on Wednesday to see about ordering a an outpatient CT to better assess the stones. Patient verbalized understanding denies any other questions or concerns at this time. Date: 03/24/25 Time: 19:24 Vital Signs Vital signs: Vital Signs Temperature 36.6 C 03/24/25 17:31 Pulse Rate 80 03/24/25 17:31 Respiratory Rate 16 03/24/25 17:31 Blood Pressure 141/49 H 03/24/25 17:31 Pulse Oximetry 97 03/24/25 17:31 Oxygen Delivery Room Air 03/24/25 17:31 Temperature 36.6 C 03/24/25 17:31 Pulse Rate 80 03/24/25 17:31 Respiratory Rate 16 03/24/25 17:31 Blood Pressure 141/49 H 03/24/25 17:31 Pulse Oximetry 97 03/24/25 17:31 Oxygen Delivery Room Air 03/24/25 17:31 Vital signs reviewed. The patient has been informed that they may have pre-hypertension or Hypertension based on a BP reading in the department. I recommend that the patient call the primary care provider listed on their discharge instructions or a physician of their choice this week to arrange follow up for further evaluation of possible pre-hypertension or Hypertension Medical Decision Making MDM Narrative Medical decision making narrative: of care patient states of perform a urine dip and urine culture. We will assess this if there is any blood we may consider also doing a KUB. Differential Diagnosis Differential Diagnosis: Differential diagnosis: Acute musculoskeletal injury or exacerbation, neurological emergency, acute coronary syndrome, kidney stones, epidural abscess or hematoma,Cauda Equina Syndrome, herniation. Vital Signs Vital Signs: Vital Signs Temperature 36.6 C 03/24/25 17:31 Pulse Rate 80 03/24/25 17:31 Respiratory Rate 16 03/24/25 17:31 Blood Pressure 141/49 H 03/24/25 17:31 Pulse Oximetry 97 03/24/25 17:31 Oxygen Delivery Room Air 03/24/25 17:31 Temperature 36.6 C 03/24/25 17:31 Pulse Rate 80 03/24/25 17:31 Respiratory Rate 16 03/24/25 17:31 Blood Pressure 141/49 H 03/24/25 17:31 Pulse Oximetry 97 03/24/25 17:31 Oxygen Delivery Room Air 03/24/25 17:31 Lab Data Labs: Lab Results 03/24/25 Range/Units 18:08 POC Urine Color Yellow POC Urine Clarity Clear POC Urine pH 6.0 POC Ur Specif [place] 1.005 POC Urine Protein Negative (Negative) POC Ur Glucose (UA) Negative (Negative) POC Urine Ketones Negative (Negative) POC Urine Blood Trace (Negative) POC Urine Nitrite Negative (Negative) POC Urine Bilirubin Negative (Negative) POC Urine Urobilinogen 0.2 POC U Leukocyte Esteras Negative (Negative) Imaging Data Radiologist's impression: Close Abdomen X-Ray (Signed) Vidal Churchill - 03/24/25 [facility] [address] [address] XRay Report Signed Patient: Joseline Sullivan : 1955 MR#: [id number] Age: 69 Acct:[id number] Loc: [facility] ADM Date: 03/24/25Attending Dr: Ordering Physician: Caryn Jasso APRN Date of Service: 03/24/25 Procedure(s): XR abdomen/kub 1V Accession Number(s): [id number] cc: Carmine George MD; Caryn Jasso CHRONIC MANAGER~ XR abdomen/kub 1V Ordering provider: SAMATNHA Lisa History: . left flank pain . Comparison: None. FINDINGS: BOWEL: Nonobstructive bowel gas pattern. ORGANOMEGALY: None. SIGNIFICANT PATHOLOGIC CALCIFICATIONS: Calcifications in the left kidney area. Calcification in the right side inferior to the L4 right transverse process. Postoperative changes seen in the area. Possibility of a stone in the left lower ureter cannot be excluded. OTHER: No free air is seen under the diaphragm. IMPRESSION: NO ACUTE ABDOMINAL FINDINGS. Faint calcifications in the left renal area which may be stones. Possibility of a stone in the left lower ureter cannot be excluded. Noncontrast CT is better for evaluation. Reviewed, dictated and finalized at location A. Critical Care Time Critical Care Time Critical Care Time: No Discharge Plan Discharge Clinical Impression: Acute left flank pain Patient Disposition: Home Condition: Stable Instructions: Antibiotic Form, Kidney Stones (ED), How to Strain Your Urine (ED) Additional Instructions: Kidney stones are formed when salts, minerals, and other substances normally found in the urine clump together. They can be as small as grains of sand or, rarely, as large as golf balls. While the stone is travelling through the ureter, which is the tube that carries urine from the kidney to the bladder, you will probably feel pain. The pain may be mild or very severe. You may also have some blood in your urine. As soon as the stone reaches the bladder, any intense pain should go away. If a stone is too large to pass on its own, you may need a medical procedure to help you pass the stone. The doctor has checked you carefully, but problems can develop later. If you notice any problems or new symptoms, get medical treatment right away. Follow-up care is a dhaliwal part of your treatment and safety. Be sure to make and go to all appointments, and call your doctor or nurse advice line (670 in most provinces and territories) if you are having problems. It's also a good idea to know your test results and keep a list of the medicines you take. How can you care for yourself at home? Drink plenty of fluids. If you have kidney, heart, or liver disease and have to limit fluids, talk with your doctor before you increase the amount of fluids you drink.Take pain medicines exactly as directed. Call your doctor or nurse advice line if you think you are having a problem with your medicine. If the doctor gave you a prescription medicine for pain, take it as prescribed. If you are not taking a prescription pain medicine, ask your doctor if you can take an [id number] medicine. Read and follow all instructions on the label.Your doctor may ask you to strain your urine so that you can collect your kidney stone when it passes. You can use a kitchen strainer or a tea strainer to catch the stone. Store it in a plastic bag until you see your doctor again. Preventing future kidney stones Some changes in your diet may help prevent kidney stones. Depending on the cause of your stones, your doctor may recommend that you: Drink plenty of fluids. If you have kidney, heart, or liver disease and have to limit fluids, talk with your doctor before you increase the amount of fluids you drink.Limit coffee, tea, and alcohol. Also avoid grapefruit juice.Do not take more than the recommended daily dose of vitamins C and D.Avoid antacids such as Gaviscon or Tums.Limit the amount of salt (sodium) in your diet.Eat a balanced diet that is not too high in protein.Limit foods that are high in a substance called oxalate, which can cause kidney stones. These foods include dark green vegetables, rhubarb, chocolate, wheat bran, nuts, cranberries, and beans. When should you call for help? Call your doctor or nurse advice line now or seek immediate medical care if: You cannot keep down fluids.Your pain gets worse.You have a fever or chills.You have new or worse pain in your back just below your rib cage (the flank area).You have new or more blood in your urine. Patient Language: Welsh Prescriptions: New tamsulosin [Flomax] 0.4 mg capsule 0.4 mg PO DAILY Qty: 10 0RF No Action anastrozole 1 mg Tablet 1 mg PO DAILY cholecalciferol (vitamin D3) 125 mcg (5,000 unit) capsule 125 mcg PO DAILY calcium carbonate [Calcium 500] 500 mg calcium (1,250 mg) tablet 1,200 mg PO DAILY omeprazole 40 mg capsule,delayed release(DR/EC) 40 mg PO DAILY Qty: 30 2RF Mounjaro 5 mg/0.5 mL pen injector 5 mg subcut WEEKLY Qty: 2 0RF alendronate 70 mg tablet PO ONCE olmesartan 20 mg tablet 10 mg PO DAILY Qty: 90 1RF meloxicam 7.5 mg tablet 7.5 mg PO DAILY Qty: 90 2RF valacyclovir 500 mg tablet See Rx Instructions .ROUTE .COMPLEX Qty: 90 3RF Dose Instruction: TAKE 1 TABLET DAILY Rx Instructions: TAKE 1 TABLET DAILY amlodipine 5 mg tablet 5 mg PO DAILY Qty: 90 2RF Rx Instructions: TAKE 1 TABLET DAILY sertraline [Zoloft] 100 mg tablet 100 mg PO DAILY Qty: 90 0RF ropinirole 1 mg tablet See Rx Instructions .ROUTE .COMPLEX Qty: 180 0RF Dose Instruction: TAKE 2 TABLETS BY MOUTH EVERY DAY AT BEDTIME Rx Instructions: TAKE 2 TABLETS BY MOUTH EVERY DAY AT BEDTIME metformin 500 mg tablet See Rx Instructions .ROUTE .COMPLEX Qty: 360 0RF Dose Instruction: TAKE 2 TABLETS BY MOUTH TWICE DAILY Rx Instructions: TAKE 2 TABLETS BY MOUTH TWICE DAILY carvedilol 12.5 mg tablet See Rx Instructions .ROUTE .COMPLEX Qty: 180 0RF Dose Instruction: TAKE 1 TABLET BY MOUTH EVERY 12 HOURS Rx Instructions: TAKE 1 TABLET BY MOUTH EVERY 12 HOURS rosuvastatin [Crestor] 40 mg tablet 40 mg PO DAILY Qty: 90 3RF pregabalin 75 mg capsule 75 mg PO TID Qty: 90 5RF Follow-up/Referrals: Srini Wahsington MD [Physician] - Carmine George MD [Primary Care Provider] - Time of Disposition: 19:23
[2025-03-24 17:31] VITALS: BP 141/49; PULSE 80; RESP 16; TEMP 36.6; O2SAT 97
[2025-03-24 18:12] LABS: EDUAAPPEAR Clear; EDUABILI Negative (Negative); EDUABLOOD Trace (Negative); EDUACOLOR1 Yellow; EDUAGLUCOSE Negative (Negative); EDUAKETONE Negative (Negative); EDUALEUKO Negative (Negative); EDUANITRATE Negative (Negative); EDUAPROTEIN Negative (Negative); EDUASPGRAVITY 1.005; EDUAUROBILI 0.2
== END 2025-03-24 19:25 | disposition home or self-care (01) ==
PROVIDERS: Emergency Provider Nurse Practitioner Family; PCP Family Medicine
DX: R10.9 Unspecified abdominal pain (principal); I10 Essential (primary) hypertension; E11.42 Type 2 diabetes mellitus with diabetic polyneuropathy; Z79.84 Long term (current) use of oral hypoglycemic drugs; Z79.85 Long-term (current) use of injectable non-insulin antidiabetic drugs; M81.0 Age-related osteoporosis without current pathological fracture; F32.A Depression, unspecified; Z85.3 Personal history of malignant neoplasm of breast; Z87.891 Personal history of nicotine dependence
CPT/HCPCS: 74018; 81003; 87086; 99213; G0463

== ENCOUNTER 2025-04-04 14:00 | Outpatient (CLI) | payer MEDICARE, OTHER, SELFPAY ==
--- NOTE | ~2025-04-04 | CT_ITS ---
Non-contrast CT scan of the Abdomen and Pelvis Clinical indication: Renal stone Technique: 2.5 mm axial scans were obtained through the abdomen and pelvis without intravenous or or al contrast. Dose reduction technique was used on this scan by utilizing automated exposure control a nd iterative reconstruction technique. The dose-length product (DLP) was 500.59 mGy-cm. Findings: Images through the lung bases reveal no abnormalities. There is no evidence of renal or ureteral calculi. The kidneys and the ureters are nondilated. The liver, spleen, pancreas, and adrenals appear normal. Tiny calcified gallstone present. There are atherosclerotic calcifications of the aorta. . There is no evidence of bowel obstruction. Images through the pelvis were performed. There is no evidence of ascites or lymphadenopathy. Urinary bladder unremarkable. 5.2 cm cystic left ovarian mass present. Impression: 5.2 cm cystic left ovarian mass. Recommend pelvic ultrasound to further evaluate/characterize. Cholelithiasis. Reviewed, dictated and finalized at [facility]. Impression: 5.2 cm cystic left ovarian mass. Recommend pelvic ultrasound to further evaluat e/characterize. Cholelithiasis.
--- OUTSIDE RECORDS SUMMARY | 2025-04-04 14:07 | XMS_ITS ---
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 Primary Care: Carmine George MD Referring Provider: Carmine George MD [address] [place] [address] Other: Dr Delaney Aggarwal MD Problem Noted [...] N0 Mx) IDC LEFT breast ER 95% LA 95% HER2/allyson - Ki67 14% S/p mastectomy and ALND 2.2cm 1.1cm 0.4cm Multifocal 0:2LNs plabn TCx 4 but she wants Oncotype NO RADIATION ONCOTYPE 8% (Recurrence Score 13) 04/08/13 F[facility]ARA --ARIMIDEX Assessment & Plan (09/20/2013 11:46 AM DISABILITY SERVICES COORDINATOR): On AI mammo January Assessment & Plan [...]
--- OUTSIDE RECORDS SUMMARY | 2025-04-04 14:07 | XMS_ITS | Clinical Summary ---
Author Organization [facility] [address] Address [address] [place] [address] Phone Care Team Providers Care Managed Care Director Name Role Phone Carmine George MD Primary Care Provider [phone] Allergies Active Allergy Reactions Criticality Noted Date [...] Carmine George MD [address] [place] [address] Other: Dr Delaney Aggarwal MD Problem Noted [...] N0 Mx) IDC LEFT breast ER 95% AR 95% HER2/allyson - Ki67 14% S/p mastectomy and ALND 2.2cm 1.1cm 0.4cm Multifocal 0:2LNs plabn TCx 4 but she wants Oncotype NO RADIATION ONCOTYPE 8% (Recurrence Score 13) 04/08/13 FEMARA --ARIMIDEX Assessment & Plan (09/20/2013 11:46 AM MASK FORMER): On AI mammo January Assessment & Plan (02/22/2013 4:04 PM CDT): IOV abn mammo Oct 2011 3 lesions Will get Onctype ROV COPD (chronic obstructive pulmonary disease) RLS (restless legs syndrome) Resolved Problems Problem Noted Date Diagnosed Date Resolved Date Cellulitis 03/10/2013 06/24/2013 Encounters Date Type Department Care Team Description 03/29/2025 External Device Data STL ABSTRACTION Provider, Abstract 03/07/2025 1:30 PM CDT Office Visit [facility] Oncology and Hematology [facility] [address] [place] [address] Heather Alvarez MD Schwarz, Michelle Elizabeth, STRATEGIC ACCOUNT EXECUTIVE Invasive ductal carcinoma of breast, left (CMS/HCC) (Primary Dx); History of breast cancer 03/07/2025 1:12 PM CDT - 03/07/2025 11:59 PM CDT Hospital Encounter [facility] Laboratory Oncology Services [facility] [address] [place] [address] Heather Alvarez MD Discharge Disposition: Home or Self Care 03/07/2025 12:11 PM CDT - 03/07/2025 11:59 PM CDT Hospital Encounter [facility] Laboratory Oncology [facility] [address] [place] [address] Heather Alvarez MD Discharge Disposition: Home or Self Care 02/27/2025 Orders Only [facility] Oncology and Hematology [facility] [address] [place] [address] Heather Alvarez MD Invasive ductal carcinoma of breast, left (CMS/HCC) (Primary Dx); Use of aromatase inhibitors; Post-menopausal; Wound of left breast, subsequent encounter; Personal history of malignant neoplasm of breast; Fitting and adjustment of left breast prosthesis; Chronic skin ulcer, unspecified ulcer stage (CMS/HCC) from Last 3 Months Immunizations Immunization Administration Dates Next Due (OLGA) COVID-19 VACCINE - EMERGENCY USE AUTHORIZATION, AD26,COV2S(PF) [...] 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 [address] [place] [address] [place] [id number] [facility] [address] [place] [address] Health Maintenance Due Date Last [...] Additional history exists COVID-19 Vaccine (2 - 4-2 5 season) 2024 01/13/2021 DIABETES HBA1C Q 6 MONTHS 02/26/20252023, 05/24/2024, 05/17/2024, Additional history exists BREAST CANCER SCREENING 09/11/2025 09/11/20 24, 09/11/2024, 09/24/2023, Additional history exists OSTEOPOROSIS SCREENING 12/17/2028 , 12/17/2023, 11/25/2021, Additional history exists COLORECTAL SCREENING 12/24/2033 12/24/2023, 12/24/2023, 10/17/2013 Colorectal Cancer Screening 12/24/2033 Medical Devices Implanted Type Area Supervisor Varnish Device Identifier Shelf Expiration Date Model / Serial / Lot Retail Brand Ambassador Clip Surgiclip Iii Ti Molina Sm 9in [id number] - [id number] Implanted:Qty: 1 on 08/05/2021 by Delaney Aggarwal MD at [facility] Clip Left: Breast [employer] - COVID[employer]EN [id number] 03/07/2026 [id number] / / [id number] Hemostatic Surgicel 2x14in 1950 - [id number] Implanted:Qty: 1 on 08/05/2021 by Delaney Aggarwal MD at [facility] Hemostatic Left: Breast [employer] 11/07/20251950 / / [id number] Hemostatic Surgicel 2x3in 1952 - [id number] Implanted:Qty: 1 on 11/10/2022 by Delaney Aggarwal MD at [facility] Hemostatic Left: Breast [employer] 12/08/20261952 / / [id number] Admissions Manager Microvasc Anastomotic 4.0mm [id number] - [id number] Implanted:Qty: 1 on 02/07/2013 by Sandip Lucio MD at [facility] Other Left: Breast [employer]ANCE 06/07/2017 [id number] / / [id number] Marker Biozorb 1m8i6xg Lprfl F0231 - [id number] Implanted:Qty: 1 on 08/05/2021 by Delaney Aggarwal MD at [facility] Other HOLOGIC/SUROS 12/08/2022 [id number] / / [id number] Procedures Procedure Name Priority Date/Time Associated [...] OR WO CAD Routine 09/11/2024 12:58 PM MASK FORMER Invasive ductal carcinoma of breast, left (CMS/HCC) Personal history of malignant neoplasm of breast HEMOGLOBIN A1C Routine 05/17/2024 XR DEXA BONE DENSITY AXIAL 1 OR MORE SITES Routine 12/17/2023 9:47 AM MASK FORMER Use of aromatase inhibitors Post-menopausal LIPID PANEL Routine 06/18/2015 from Last 3 Months or Most Recently Relevant to Health Maintenance Results * (ABNORMAL) CBC WITH DIFFERENTIAL (03/07/2025 12:11 PM CDT) Pathologist [facility] WBC 7.3 4.5 - 10.5 K/uL 03/07/2025 12:37 PM CDT [facility] RBC 3.86(L) 3.90 - 4.90 M/uL 03/07/2025 12:37 PM CDT [facility] HEMOGLOBIN 12.5 11.8 - 14.8 g/dL 03/07/2025 12:37 PM CDT [facility] HEMATOCRIT 36.9 35.5 - 44.0 % 03/07/2025 12:37 PM CDT [facility] MCV 95.7 82.0 - 99.0 fL 03/07/2025 12:37 PM CDT [facility] MCH 32.3 27.8 - 34.5 pg 03/07/2025 12:37 PM CDT [facility] MCHC 33.8 32.5 - 35.5 g/dL 03/07/2025 12:37 PM CDT [facility] RDW 14.8(H) 11.5 - 14.5 % 03/07/2025 12:37 PM CDT [facility] PLATELETS 250 160 - 420 K/uL 03/07/2025 12:37 PM CDT [facility] MPV 7.6(L) 8.7 - 12.7 fL 03/07/2025 12:37 PM CDT [facility] NEUTROPHILS 58 % 03/07/2025 12:37 PM CDT [facility] LYMPHOCYTES 28 % 03/07/2025 12:37 PM CDT [facility] MONOCYTES 10 % 03/07/2025 12:37 PM CDT [facility] EOSINOPHILS 3 % 03/07/2025 12:37 PM CDT [facility] BASOPHILS 1 % 03/07/2025 12:37 PM CDT [facility] NEUTROPHIL ABSOLUTE 4.30 1.90 - 7.00 K/uL 03/07/2025 12:37 PM CDT [facility] LYMPHOCYTE ABSOLUTE 2.10 0.70 - 4.50 K/uL 03/07/2025 12:37 PM CDT [facility] MONOCYTE ABSOLUTE 0.70 0.10 - 1.30 K/uL 03/07/2025 12:37 PM CDT [facility] EOSINOPHIL ABSOLUTE 0.20 0.00 - 0.70 K/uL 03/07/2025 12:37 PM CDT [facility] BASOPHILS ABSOLUTE 0.10 0.00 - 0.20 K/uL 03/07/2025 12:37 PM CDT [facility] Blood Venipuncture / Unknown 03/07/2025 12:11 PM CDT 03/07/2025 12:31 PM CDT Heather Alvarez MD HEMATOLOGY ORDERABLES Fi nal Result [facility] CLIA#[id number] [place] [address] * (ABNORMAL) COMPREHENSIVE METABOLIC PANEL (03/07/2025 12:11 PM CDT) SODIUM 140 136 - 145 mmol/L 03/07/2025 1:27 PM CDT [facility] POTASSIUM 4.2 3.4 - 5.1 mmol/L 03/07/2025 1:27 PM CDT [facility] CHLORIDE 102 98 - 107 mmol/L 03/07/2025 1:27 PM CDT [facility] CO2 25 22 - 29 mmol/L 03/07/2025 1:27 PM CDT [facility] CALCIUM 9.1 8.6 - 10.4 mg/dL 03/07/2025 1:27 PM CDT [facility] BUN 19 6 - 20 mg/dL 03/07/2025 1:27 PM CDT [facility] CREATININE 0.79 0.51 - 0.95 mg/dL 03/07/2025 1:27 PM CDT [facility] Comment:The GFR result is no t clinically significant on patients <18 or >70 years of age. GLUCOSE 154(H) 74 - 99 mg/dL 03/07/2025 1:27 PM CDT [facility] TOTAL PROTEIN 6.9 6.3 - 8.7 g/dL 03/07/2025 1:27 PM CDT [facility] ALBUMIN 4.0 3.5 - 5.2 g/dL 03/07/2025 1:27 PM T [facility] BILIRUBIN TOTAL 0.2 0.0 - 1.1 mg/dL 03/07/2025 1:27 PM CDT [facility] ALKALINE PHOSPHATASE 41 40 - 150 U/L 03/07/2025 1:27 PM T [facility] AST 23 0 - 33 U/L 03/07/2025 1:27 PM T [facility] ALT 19 0 - 33 U/L 03/07/2025 1:27 PM [facility] GFR >60 mL/min/1.7 3 sq meter 03/07/2025 1:27 PM T [facility] Comment:eGFR calculated with 2020 CKD-EPI equation. Vegetarian diet, extremely high or low muscle mass, and may affect results. Cystatin C with Glomerular Filtration Rate is a suitable alternative for these patients. ANION GAP 13 8 - 16 mmol/L 03/07/2025 1:27 PM T [facility] Blood Venipuncture / Unknown 03/07/2025 12:11 PM CDT 03/07/2025 12:31 PM CDT us Heather Alvarez MD CHEMISTRY ORDERABLES Fin al Result [facility] CLIA# [id number] [address] [place] [address] * MAMMO 3D ARIE DIAGNOSTIC UNI RT 3D W OR WO CAD (09/11/2024 12:58 PM MASK FORMER) Anatomical Region Laterality Modality Breast Right Mammography 09/11/2024 12:5 8 PM MASK FORMER Impressions 09/11/2024 1:28 PM MASK FORMER IMPRESSION: No mammographic evidence of malignancy in the right breast. Routine screening mammography is recommended in one year. OVERALL FINAL ASSESSMENT: BI-RADS CATEGORY 2 - Benign. DICTATION LOCATION: [facility] Narrative 09/11/2024 1:28 PM MASK FORMER EXAMINATION: UNILATERAL RIGHT DIAGNOSTIC DIGITAL MAMMOGRAPHY WITH [...] BI-RADS CATEGORY 2 - Benign. DICTATION LOCATION: [facility] Heather Alvarez MD MAMMO ORDERABLES Final R esult * HEMOGLOBIN A1C (05/17/2024) ABSTRACTED HGB A1C 6.1 % [facility] Blood 05/17/2024 us Abstract Provider CHEMISTRY ORDERABLES Final Res ult [facility] * XR DEXA BONE DENSITY AXIAL 1 OR MORE SITES (12/17/2023 9:47 AM MASK FORMER) Anatomical Region Laterality Modality Computed Radiogr aphy 12/17/2023 9:47 AM MASK FORMER Impressions 12/17/2023 11:12 AM MASK FORMER FINDINGS/IMPRESSION: Osteopenia with a lowest T score of -1.6, previously -1.2. Fracture risk is moderate. FRAX: 10 year probability of major osteoporotic fracture is 15.0 %. 10 year probability of hip fracture is 2.1 %. Please refer to the full report available in [facility] under the PACS Images tab. If a faxed copy is needed, please call [phone]. DICTATION LOCATION: [facility] Narrative 12/17/2023 11:12 AM MASK FORMER SUMMARY DEXA REPORT DATE: 12/17/2023 9:47 AM [...] refer to the full report available in [facility] under the PACS Images tab. If a faxed copy is needed, please call [phone]. DICTATION LOCATION: [facility] Heather Alvarez MD DIAGNOSTIC IMAGING ORDER GENEVIEVE Final Result * (ABNORMAL) LIPID PANEL (06/18/2015) Blood specimen (specimen) Carmine George MD CHEMISTRY ORDERABLES Edited Res ult - Final [facility]# [id number] [address] [place] [address] from Last 3 Months or Most Recently Relevant to Health Maintenance Insurance MEDICARE PART A AND B [facility] RX [employer] Medicare Part D RX [employer] (INTERNAL) [facility] Internal Plans Advance Directives For more information, please contact: [phone] * Full Code (Latest Code Status on [...] 9:11 PM 02/10/2013 12:05 PM Care Teams Managed Care Director Relationship Specialty Start Date End Date Carmine George MD [address] [place] [address] PCP - General Family Practice 01/23/13
--- OUTSIDE RECORDS SUMMARY | 2025-04-04 14:07 | XMS_ITS | Clinical Summary ---
Author Organization [facility] [address] Address [address] [place] [place] [address] Care Team Providers Care Hospice Executive Director Name Role Phone Carmine George MD Primary Care Provider [phone] Allergies Active Allergy Reactions Criticality Noted Date [...] 09/13/2024 Assessment & Plan (09/13/2024 1:52 PM BUSINESS ANALYST CONSULTANT): The tube was lying in the canal with a lot of wax and this was removed. She tolerated well. Tympanic membrane looks okay. Gastroesophageal reflux disease without esophagi tis 09/13/2024 Assessment & Plan (09/13/2024 1:56 PM BUSINESS ANALYST CONSULTANT): I felt that using Tums was a good idea and she is using it on an as needed basis. She could try using Gaviscon instead. Ultimately if her symptoms continue I think she should probably see a web press jogger. She understands. Otalgia of both ears 12/28/2023 Assessment & Plan (12/28/2023 8:27 PM BUSINESS ANALYST CONSULTANT): Likely due to Eustachian tube difficulties which [...] understands. Assessment & Plan (09/13/2024 1:51 PM BUSINESS ANALYST CONSULTANT): Both ears look okay. She still has [...] months. Assessment & Plan (12/28/2023 8:27 PM BUSINESS ANALYST CONSULTANT): I talked with her about this and [...] Description 03/14/2025 1:15 PM CDT Office Visit [facility] Otolaryngology [address] [place] [address] Jadiel Sears MD Dysfunction of [...] on file Legal Sex Female 2:13 AM BUSINESS ANALYST CONSULTANT Gender Identity Not on file Sexual Orientation Not on file Obstetrics History Last Filed Vital Signs Vital Sign Reading Time Taken Comments Blood Pressure - - Pulse - - Temperature - - Respiratory Rate 18 03/14/2025 1:27 PM CDT Oxygen Saturation - - Inhaled Oxygen Concentration - - Weight 104.3 kg (230 lb) 03/14/2025 1:27 PM CDT Height 175.3 cm (5' 9) 03/14/2025 1:27 PM CDT Body Mass Index [...] 12/17/2023, 12/17/2023, 11/25/2021, Additional [place] [address] MEDICARE [facility] [address] [id number] [place] [address] Care Teams Hospice Executive Director Relationship Specialty Start Date End Date Carmine George MD PCP - General Family Medicine 12/28/23
--- OUTSIDE RECORDS SUMMARY | 2025-04-04 14:07 | XMS_ITS | Referral Summary ---
Author Organization [address] Address [address] [place] [address] Care Team Providers Care Boiler Repair Supervisor Name Role Phone Carmine George MD Primary Care Provider Encounters Date Type Department Care Team Description 03/14/2025 1:15 PM CDT Office Visit [facility] Otolaryngology [address] [place] [address] Jadiel Sears MD Dysfunction of both [...] 09/13/2024 Assessment & Plan (09/13/2024 1:52 PM PLANT OPERATIONS WORKER): The tube was lying in the canal with a lot of wax and this was removed. She tolerated well. Tympanic membrane looks okay. Gastroesophageal reflux disease without esophagi tis 09/13/2024 Assessment & Plan (09/13/2024 1:56 PM PLANT OPERATIONS WORKER): I felt that using Tums was a good idea and she is using it on an as needed basis. She could try using Gaviscon instead. Ultimately if her symptoms continue I think she should probably see a canadian bacon tier. She understands. Otalgia of both ears 12/28/2023 Assessment & Plan (12/28/2023 8:27 PM PLANT OPERATIONS WORKER): Likely due to Eustachian tube difficulties which [...] understands. Assessment & Plan (09/13/2024 1:51 PM PLANT OPERATIONS WORKER): Both ears look okay. She still has [...] months. Assessment & Plan (12/28/2023 8:27 PM PLANT OPERATIONS WORKER): I talked with her about this and [...] on file Legal Sex Female 2:13 AM PLANT OPERATIONS WORKER Gender Identity Not on file Sexual Orientation [...] of Treatment Not on file Insurance MEDICARE [facility] [place] [id number] [place] [address] [id number] Care Teams Boiler Repair Supervisor Relationship Specialty Start Date End Date Carmine George MD PCP - General Family Medicine 12/28/23
--- OUTSIDE RECORDS SUMMARY | 2025-04-04 14:07 | XMS_ITS | Clinical Summary ---
Author Organization [facility] Address [address] [place] [address] Care Team Providers Care Barrel Tester And Drainer Name Role Phone Unavailable Primary Care Provider Unavailabl e Source Comments [facility],non-owned Affiliates and Associated Physician Practices is amultiple site organization consisting of ambulatory clinics and hospital sitesin [place], [place], [place] and [place]. This disclosure is being madepursuant to the Care Everywhere program and may not contain all information available regarding this patient. Last updated 18.[facility] [employer] Social History Tobacco Use Types Packs/Day Years Used Date Smoking Tobacco: Never Assessed Comments Unknown Sex and Gender Information Value Date Recorded Sex Assigned at Not on file Legal Sex Female 6:50 PM PAN HELPER Gender Identity Not on file Sexual [...] age to complete this topic Insurance MEDICARE [facility] MEDICARE [facility] MEDICARE [facility] MEDICARE [facility]
== END 2025-04-04 14:01 | disposition home or self-care (01) ==
PROVIDERS: PCP Family Medicine; Visit Provider Physician Assistant Medical
DX: N20.0 Calculus of kidney (principal); N83.292 Other ovarian cyst, left side; Z87.19 Personal history of other diseases of the digestive system
CPT/HCPCS: 74176

== ENCOUNTER 2025-04-19 13:02 | Outpatient (CLI) | payer MEDICARE, OTHER, SELFPAY ==
--- NOTE | ~2025-04-19 | US_ITS ---
Pelvic ultrasound. Clinical History: Left ovarian cyst Technique: Realtime transabdominal and transvaginal scanning of the pelvis was performed. Color flow Doppler and Doppler spectral analysis were performed. Findings: The uterus is anteverted. The endometrial stripe has a thickness of 2 mm. No focal mass is identified. The right ovary is not visualized. No significant right ovarian or adnexal mass is seen. There is a septated left ovarian cyst measuring 4.3 x 4.0 cm, with benign ovarian tissue splayed arou nd the cyst. There is no evidence of free fluid in the cul de sac. Impression: 4.3 x 4.0 cm mildly complex, septated left ovarian cyst. Given patient age, annual follow-up at a min imum is advised. Gynecologic consultation recommended. Reviewed, dictated and finalized at [facility]. Impression: 4.3 x 4.0 cm mildly complex, septated left ovarian cyst. Given patient age, sandra ual follow-up at a minimum is advised. Gynecologic consultation recommended.
== END 2025-04-19 13:03 | disposition home or self-care (01) ==
LOC: GOSHIMG 13:03
PROVIDERS: PCP Family Medicine; Visit Provider Physician Assistant Medical
DX: N83.292 Other ovarian cyst, left side (principal)
CPT/HCPCS: 76830

== ENCOUNTER 2025-07-17 13:34 | Outpatient (CLI) | payer MEDICARE, OTHER, SELFPAY ==
--- NOTE | 2025-07-17 13:48 | ECHO_ITS ---
Patient Info Name: Joseline Sullivan Age: 69 years : 1955 Gender: Female Ht: 68 in Wt: 230 lbs BSA: 2.28 m2 HR: 72 bpm BP: 173 / 87 mmHg Heart Rhythm: Sinus Rhythm Technical Quality: Fair Exam Date: 07/17/2025 1:57 PM Patient Status: O Admit Date: 07/17/2025 Exam Type: CA echo doppler color flow Complete two-dimensional, color flow and Doppler transthoracic echocardiogram is performed. Strain analysis performed. Dials Supervisor: Brisa Sr Attending Provider: Ilya Roman DO Summary 1. Complete two-dimensional, color flow and Doppler transthoracic echocardiogram is performed. 2. Left ventricular chamber dimension is normal. 3. Left ventricular systolic function is normal, estimated at 60-65. 4. The left ventricular diastolic function is grade I diastolic dysfunction. 5. E/e' 9 is minimally elevated. 6. Global longitudinal strain is normal at -19.9%. 7. Left atrial chamber dimension is mildly enlarged. 8. There is trace mitral valve regurgitation. 9. There is trace tricuspid valve regurgitation. 10. No pulmonary hypertension, estimated pulmonary arterial systolic pressure is 23 mmHg. Left Ventricle E/e' 9 is minimally elevated. Left ventricular chamber dimension is normal. Left ventricular systolic function is normal, estimated at 60-65. The left ventricular diastolic function is grade I diastolic dysfunction. Global longitudinal strain is normal at -19.9%. Right Ventricle Right ventricular chamber dimension is normal. Right ventricular systolic function is normal and with normal TAPSE 2.5 cm. Left Atria Left atrial chamber dimension is mildly enlarged. Right Atria Right atrial chamber dimension is normal. Aortic Valve The aortic valve is trileaflet. There is no aortic valve stenosis. There is no aortic valve regurgitation. Pulmonic Valve There is no pulmonic regurgitation. Mitral Valve There is no mitral valve stenosis. There is trace mitral valve regurgitation. Tricuspid Valve There is trace tricuspid valve regurgitation. No pulmonary hypertension, estimated pulmonary arterial systolic pressure is 23 mmHg. Pericardium/Pleural There is no pericardial effusion. Inferior Vena Cava Normal inferior vena cava with >50% collapse upon inspiration consistent with normal right atrial pressure, 5 mmHg. Aorta The aortic root size at the sinus of Valsalva is normal. Left Ventricular Outflow Tract Name Value Normal LVOT 2D LVOT Diameter 2.0 cm LVOT Doppler LVOT Peak Velocity 119 cm/s LVOT Peak Gradient 6 mmHg LVOT Mean Gradient 3 mmHg LVOT VTI 27 cm LVOT VTI/AV VTI Ratio 0.9 LVOT Stroke Volume 83 ml LVOT CO 6.3 l/min LVOT CI 2.8 l/min/m2 Mitral Valve Name Value Normal MV Diastolic Function MV E Peak Velocity 76 cm/s MV A Peak Velocity 99 cm/s MV E/A 0.8 MV Decel Time (PW) 218 ms MV Annular TDI MV E/e' (Septal) 13.0 MV E/e' (Lateral) 7.9 MV E/e' (Average) 10.4 Tricuspid Valve Name Value Normal TV Regurgitation Doppler TR Peak Velocity 211 cm/s TR Peak Gradient 18 mmHg Estimated PAP/RSVP RA Pressure 5 mmHg <=5 PA Systolic Pressure 23 mmHg <36 RV Systolic Pressure 23 mmHg <36 TV Annular TDI TV Lateral Heather s' Velocity 17.0 cm/s >=9.5 Aortic Valve Name Value Normal AV Doppler AV Peak Velocity 132 cm/s AV Peak Gradient 7 mmHg AV Mean Gradient 4 mmHg AV VTI 29 cm AV Area (Cont Eq VTI) 2.8 cm2 >=3.0 AV Area (Cont Eq Jimmy) 2.8 cm2 AV DI (Jimmy) 0.90 AV Regurgitation 2D LVOT Area 3.1 cm2 Ventricles Name Value Normal LV Dimensions 2D/MM IVS Diastolic Thickness (2D) 0.7 cm 0.6-1.0 LVID Diastole (2D) 5.1 cm 3.8-5.2 LVIW Diastolic Thickness (2D) 0.7 cm 0.6-0.9 LVID Systole (2D) 3.5 cm 2.2-3.5 LVOT Diameter 2.0 cm LV Mass (2D Cubed) 119.22 g 67.00-162.00 LV Mass Index (2D Cubed) 52 g/m2 43-95 Relative Wall Thickness (2D) 0.29 <=0.42 LV Fractional Shortening/Ejection Fraction 2D/MM LV Fractional Shortening (2D) 33 % 27-45 LV EF (2D Teichbasilz) 61 % LV Diastolic Volume (4C MOD) 73 ml LV EF (4C MOD) 70 % LV Diastolic Volume (2C MOD) 42 ml LV EF (2C MOD) 69 % LV Diastolic Volume (BP MOD) 56 ml 46-106 LV Diastolic Volume Index (BP MOD) 25 ml/m2 29-61 LV Systolic Volume (BP MOD) 17 ml 14-42 LV Systolic Volume Index (BP MOD) 8 ml/m2 8-24 LV EF (BP MOD) 69 % 54-74 LV Diastolic Length (4C) 6.9 cm LV Systolic Length (4C) 5.6 cm LV Stroke Volume (4C MOD) 51 ml Atria Name Value Normal LA Dimensions LA Volume (4C A-L) 39 ml LA Volume (BP A-L) 49 ml RA Dimensions RA Area (4C) 11.1 cm2 <=18.0 EchoPAC Name Value Normal ASTRID LV Apical Anterior Longitudinal Strain (ASTRID) -20.4 % LV Apical Anteroseptal Longitudinal Strain (ASTRID) -26.8 % LV Apical Inferior Longitudinal Strain (ASTRID) -29.8 % LV Apical Lateral Longitudinal Strain (ASTRID) -17.9 % LV Apical Posterior Longitudinal Strain (ASTRID) -19.1 % LV Apical Septal Longitudinal Strain (ASTRID) -23.6 % AV Closure (ASTRID) 387 ms LV Basal Anterior Longitudinal Strain (ASTRID) -18.5 % LV Basal Anteroseptal Longitudinal Strain (ASTRID) -26.8 % LV Basal Inferior Longitudinal Strain (ASTRID) -21.3 % LV Basal Anterolateral Longitudinal Strain (ASTRID) -12.2 % LV Basal Inferolateral Longitudinal Strain (ASTRID) -7.7 % LV Basal Inferoseptal Longitudinal Strain (ASTRID) -22.1 % LV Global Longitudinal Strain (2C ASTRID) -21.9 % LV Global Longitudinal Strain (4C ASTRID) -18.8 % LV Global Longitudinal Strain (APLAX ASTRID) -19.0 % LV Global Longitudinal Strain (ASTRID) -19.9 % LV Mid Anterior Longitudinal Strain (ASTRID) -15.1 % LV Mid Anteroseptal Longitudinal Strain (ASTRID) -27.8 % LV Mid Inferior Longitudinal Strain (ASTRID) -25.8 % LV Mid Anterolateral Longitudinal Strain (ASTRID) -13.0 % LV Mid Inferolateral Longitudinal Strain (ASTRID) -8.8 % LV Mid Inferoseptal Longitudinal Strain (ASTRID) -25.8 % Report Signatures
--- OUTSIDE RECORDS SUMMARY | 2025-07-17 15:04 | XMS_ITS | Clinical Summary ---
Author Organization [facility] Address [address] [place] [address] Phone Care Team Providers Care Case Specialist Name Role Phone Carmine George MD Primary Care Provider [phone] Allergies Active Allergy Reactions Criticality Noted Date [...] Take 100 mg by mouth daily. Active anastrozole (ARIMIDEX) 1 mg tabletIndicatio ns:Invasive ductal carcinoma of breast, left (CMS/HCC),Use of aromatase inhibitors,Post -menopausal TAKE 1 TABLET(1 MG) BY MOUTH DAILY 90 Tablet 3 5 Active alendronate (FOSAMAX) 70 mg tablet TAKE 1 TABLET BY MOUTH EVERY 7 DAYS WITH 8OZ OF WATER ON AN EMPTY STOMACH BEFORE ANY OTHER MED. STAY UPRIGHT FOR 30 MINUTES 8 Tablet 1 5 Active Active Problems Patient Care Coordination No te Formatting of this note migh t be different from the original. Primary Care: Carmine George MD Referring Provider: Carmine George MD [address] [place] [address] Other: Dr Delaney Aggarwal MD Problem Noted [...] N0 Mx) IDC LEFT breast ER 95% FL 95% HER2/allyson - Ki67 14% S/p mastectomy and ALND 2.2cm 1.1cm 0.4cm Multifocal 0:2LNs plabn TCx 4 but she wants Oncotype NO RADIATION ONCOTYPE 8% (Recurrence Score 13) 04/08/13 FEMARA --ARIMIDEX Assessment & Plan (09/20/2013 11:46 AM ROLL PRESS OPERATOR): On AI mammo January Assessment & Plan (02/22/2013 4:04 PM CDT): IOV abn mammo Oct 2011 3 lesions Will get Onctype ROV COPD (chronic obstructive pulmonary disease) RLS (restless legs syndrome) Resolved Problems Problem Noted Date Diagnosed Date Resolved Date Cellulitis 03/10/2013 06/24/2013 Encounters Date Type Department Care Team Description 07/10/2025 External Device Data STL ABSTRACTION Provider, Abstract 07/10/2025 External Device Data STL ABSTRACTION Provider, Abstract 05/23/2025 External Device Data STL ABSTRACTION Provider, Abstract 05/23/2025 External Device Data STL ABSTRACTION Provider, Abstract 05/23/2025 External Device Data STL ABSTRACTION Provider, Abstract 05/22/2025 External Device Data STL ABSTRACTION Provider, Abstract 04/24/2025 External Device Data STL ABSTRACTION Provider, Abstract from Last 3 Months Immunizations Immunization Administration [...] 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 [employer] Not on file Not on file Not [...] st Contact Info) Description 09/11/2025 1:00 PM ROLL PRESS OPERATOR Office Visit [facility] Oncology and Hematology [facility] [address] [facility] [address] [place] [address] [place] [address] [address] [facility] [address] [place] [address] Health Maintenance Due Date Last Done Comments DIABETES ANNUAL FOOT EXAM 1971 DIABETES MICROALBUMIN ANNUAL SCREEN 1971 [...] 06/18/2016 5, 03/28/2014, 12/09/2012 INFLUENZA VACCINE (#1) 2025 3, 08/26/2021, 08/10/2018, Additional history exists COVID-19 Vaccine (2 - 2024-2 6 season) 2025 01/13/2021 BREAST CANCER SCREENING 09/11/2025 09/11/20 24, 09/11/2024, 09/24/2023, Additional history exists DIABETES HBA1C Q 6 MONTHS 09/12/20252024, 12/06/2024, 08/28/2024, Additional history exists DIABETES ANNUAL RETINAL EXAM 02/02/2026 02/02/2025 OSTEOPOROSIS SCREENING 12/17/2028 4, 12/17/2023, 11/25/2021, Additional history exists COLORECTAL SCREENING 12/24/2033 12/24/2023, 12/24/2023, 10/17/2013 Colorectal Cancer Screening 12/24/2033 Medical Devices Implanted Type Area Parachute Taper Device Identifier Shelf Expiration Date Model / Serial / Lot Sustainable Agriculture Specialist Clip Surgiclip Iii Ti Molina Sm 9in [id number] - [id number] Implanted:Qty: 1 on 08/05/2021 by Delaney Aggarwal MD at [facility] Clip Left: Breast [employer] - COVIDIEN [id number] 03/07/2026 [id number] / / [id number] Hemostatic Surgicel 2x14in 1952 - [id number] Implanted:Qty: 1 on 08/05/2021 by Delaney Aggarwal MD at [facility] Hemostatic Left: Breast J[employer]J- [employer] 11/07/20251950 / / [id number] Hemostatic Surgicel 2x3in 1954 - [id number] Implanted:Qty: 1 on 11/10/2022 by Delaney Aggarwal MD at [facility] Hemostatic Left: Breast [employer]- [employer] 12/08/20261952 / / [id number] Flume Maker Microvasc Anastomotic 4.0mm [id number] - [id number] Implanted:Qty: 1 on 02/07/2013 by Sandip Lucio MD at [facility] Other Left: Breast [employer]IS- MI[employer]IANCE 06/07/2017 [id number] / / [id number] Marker Biozorb [id number] Lprfl - [id number] Implanted:Qty: 1 on 08/05/2021 by Delaney Aggarwal MD at [facility] Other HOLOGIC/SUROS 12/08/2022 [id number] / / [id number] Procedures Procedure Name Priority Date/Time Associated Diagnosis Comments MAMMO DIAG UNI RIGHT 3D ARIE W OR WO CAD Routine 09/11/2024 12:58 PM ROLL PRESS OPERATOR Invasive ductal carcinoma of breast, left (CMS/HCC) Personal history of malignant neoplasm of breast HEMOGLOBIN A1C Routine 05/17/2024 XR DEXA BONE DENSITY AXIAL 1 OR MORE SITES Routine 12/17/2023 9:47 AM ROLL PRESS OPERATOR Use of aromatase inhibitors Post-menopausal LIPID PANEL Routine 06/18/2015 from Last 3 Months or Most Recently Relevant to Health Maintenance Results * MAMMO 3D ARIE DIAGNOSTIC UNI RT 3D W OR WO CAD (09/11/2024 12:58 PM ROLL PRESS OPERATOR) Anatomical Region Laterality Modality Breast Right Mammography 09/11/2024 12:5 8 PM ROLL PRESS OPERATOR Impressions 09/11/2024 1:28 PM ROLL PRESS OPERATOR IMPRESSION: No mammographic evidence of malignancy in the right breast. Routine screening mammography is recommended in one year. OVERALL FINAL ASSESSMENT: BI-RADS CATEGORY 2 - Benign. DICTATION LOCATION: [facility] Narrative 09/11/2024 1:28 PM ROLL PRESS OPERATOR EXAMINATION: UNILATERAL RIGHT DIAGNOSTIC DIGITAL MAMMOGRAPHY WITH [...] BI-RADS CATEGORY 2 - Benign. DICTATION LOCATION: [facility] Heather Alvarez MD MAMMO ORDERABLES Final R esult * HEMOGLOBIN A1C (05/17/2024) ABSTRACTED HGB A1C 6.1 % [facility] Blood 05/17/2024 us Abstract Provider CHEMISTRY ORDERABLES Final Res ult [facility] * XR DEXA BONE DENSITY AXIAL 1 OR MORE SITES (12/17/2023 9:47 AM ROLL PRESS OPERATOR) Anatomical Region Laterality Modality Computed Radiogr aphy 12/17/2023 9:47 AM ROLL PRESS OPERATOR Impressions 12/17/2023 11:12 AM ROLL PRESS OPERATOR FINDINGS/IMPRESSION: Osteopenia with a lowest T score of -1.6, previously -1.2. Fracture risk is moderate. FRAX: 10 year probability of major osteoporotic fracture is 15.0 %. 10 year probability of hip fracture is 2.1 %. Please refer to the full report available in [facility] under the PACS Images tab. If a faxed copy is needed, please call [phone]. DICTATION LOCATION: [facility] Narrative 12/17/2023 11:12 AM ROLL PRESS OPERATOR SUMMARY DEXA REPORT DATE: 12/17/2023 9:47 AM [...] refer to the full report available in [facility] under the PACS Images tab. If a faxed copy is needed, please call [phone]. DICTATION LOCATION: [facility] Heather Alvarez MD DIAGNOSTIC IMAGING ORDER GENEVIEVE Final Result * (ABNORMAL) LIPID PANEL (06/18/2015) Blood specimen (specimen) us Carmine Ariel CAROMNA CHEMISTRY ORDERABLES Edited Res ult - Final [facility]# [id number] [address] from Last 3 Months or Most Recently Relevant to Health Maintenance Insurance MEDICARE PART A AND B [facility] RX [employer] Medicare Part D RX [employer] PLANS (INTERNAL) [facility] Internal Plans Advance Directives For more information, please contact: [phone] * Full Code (Latest Code Status on [...] 9:11 PM 02/10/2013 12:05 PM Care Teams Case Specialist Relationship Specialty Start Date End Date Carmine George MD [address] [place] [id number] PCP - General Family Practice 01/23/13
--- OUTSIDE RECORDS SUMMARY | 2025-07-17 15:04 | XMS_ITS ---
Author Organization [facility] Address [address] [place] [address] Phone Care Team Providers Care Link Wire Fabric Machine Tender Name Role Phone Carmine George MD Primary Care Provider [phone] Active Problems Patient Care Coordination No te Formatting of this note migh t be different from the original. Primary Care: Carmine George MD Referring Provider: Carmine George MD [address] [place] [address] Other: Dr Delaney Aggarwal MD Problem Noted [...] --ARIMIDEX Assessment & Plan (09/20/2013 11:46 AM CARTON MARKER MACHINE): On AI mammo January Assessment & Plan [...]
--- OUTSIDE RECORDS SUMMARY | 2025-07-17 15:04 | XMS_ITS | Clinical Summary ---
Author Organization [facility] Address [address] [place] [address] Care Team Providers Care Sammying Machine Operator Name Role Phone Unavailable Primary Care Provider Unavailabl e Source Comments [facility],non-owned Affiliates and Associated Physician Practices is amultiple site organization consisting of ambulatory clinics and hospital sitesin [place], [place], [place] and [place]. This disclosure is being madepursuant to the Care Everywhere program and may not contain all information available regarding this patient. 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
--- OUTSIDE RECORDS SUMMARY | 2025-07-17 15:04 | XMS_ITS | Clinical Summary ---
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 Gender Identity Not on file Sexual Orientation Not on file Plan of Treatment Health Maintenance Due Date Last Done Comments Colorectal Cancer Screening Colonoscopy (10 Years) 1955 Hepatitis C 1971 DTaP, Tdap and Td Vaccines (1 - Tdap) 1972 Zoster Vaccines (1 of 2) 2003 Annual Medicare Wellness Visit 2018 Pneumococcal Vaccine: 50+ Years (2 of 2 - PCV) 07/30/2021 07/30/2020, 10/04/2007 PHQ-2 (Physician [place]) 11/08/2024 COVID-19 Vaccine ( season) 2025 08/22/2022, 02/13/2022, 10/16/2021, Additional history exists Mammogram Screening 09/24/2025 09/24/2023, 09/23/2022, 02/25/2022, Additional [...] age to complete this topic Insurance MEDICARE [facility] Care Teams Page Technician Relationship Specialty Start Date End Date Carmine George MD [address] [place] [address] PCP - General FAMILY PRACTICE 12/08/23
--- OUTSIDE RECORDS SUMMARY | 2025-07-17 15:04 | XMS_ITS | Clinical Summary ---
Author Organization [facility] [address] Address [address] [place] [address] Care Team Providers Care Blindstitch Hemmer Name Role Phone Carmine George MD Primary Care Provider [phone] Allergies Active Allergy Reactions Criticality Noted Date Comments Adhesive Blisters High 12/28/2023 Aspirin Rash Medium 12/28/2023 Doxycycline Hives Medium 09/13/2024 Sulfa Shortness of breath High 12/28/2023 Tramadol Itching Low 12/28/2023 Medications anastrozole (ARIMIDEX) 1 mg tablet Take 1 tablet (1 mg total) by mouth daily 4 Active cholecalciferol (VITAMIN D-3) 5,000 unit capsule Take 1 [...] 2 (two) times a day 4 Active multivit-min/fe rrous fumarate (MULTI VITAMIN ORAL) Take by mouth Active calcium carbonate-vitam in D3 1,500 mg (600 mg elemental)-200 unit capsule Take by mouth Act destini Active Problems Problem Noted Date Diagnosed Date Foreign body of left ear 09/13/2024 Assessment & Plan (09/13/2024 1:52 PM CLOTH PACKER): The tube was lying in the canal with a lot of wax and this was removed. She tolerated well. Tympanic membrane looks okay. Gastroesophageal reflux disease without esophagi tis 09/13/2024 Assessment & Plan (09/13/2024 1:56 PM CLOTH PACKER): I felt that using Tums was a good idea and she is using it on an as needed basis. She could try using Gaviscon instead. Ultimately if her symptoms continue I think she should probably see a budget manager. She understands. Otalgia of both ears 12/28/2023 Assessment & Plan (12/28/2023 8:27 PM CLOTH PACKER): Likely due to Eustachian tube difficulties which [...] understands. Assessment & Plan (09/13/2024 1:51 PM CLOTH PACKER): Both ears look okay. She still has [...] months. Assessment & Plan (12/28/2023 8:27 PM CLOTH PACKER): I talked with her about this and [...] she has any problems with discharge pain. Surgical History Surgery Date Site/Laterality Comments BREAST [...] on file Legal Sex Female 2:13 AM CLOTH PACKER Gender Identity Not on file Sexual Orientation [...] 06/03/2020, 03/28/2019, Additional history exists Covid-19 Vaccine (5 - 2023-2 5 season) 2024 08/22/2022, 02/13/2022, 10/16/2021, Additional history exists Influenza Vaccine (#1) 2025 , 08/22/2022, 08/26/2021, Additional history exists Osteoporosis Screening-Bone Density Scan 12/17/2025 12/17/2023, 12/17/2023, 11/25/2021, Additional history exists Insurance MEDICARE [facility] Care Teams Blindstitch Hemmer Relationship Specialty Start Date End Date Carmine George MD PCP - General Family Medicine 12/28/23
== END 2025-07-17 13:35 | disposition home or self-care (01) ==
LOC: ANHCARD 13:36
PROVIDERS: PCP Family Medicine; Visit Provider Internal Medicine Cardiovascular Disease
DX: R93.1 Abnormal findings on diagnostic imaging of heart and coronary circulation (principal); R06.09 Other forms of dyspnea
CPT/HCPCS: 93306